=== PATIENT | female | born 1955 | race Caucasian/White ===

== ENCOUNTER 2018-10-17 01:13 | Emergency (ER) | payer MEDICAID ==
[~2018-10-17] VITALS: Ht 152.4 cm; Wt 99.8 kg
[2018-10-17 01:15] VITALS: BP_SYST 152
--- NOTE | 2018-10-17 01:20 | NUR ---
Patient to ER bed 2 to gown for evaluation. Side rails up.
--- NOTE | 2018-10-17 01:25 | NUR ---
Pt BIB family to ED C/O L sided numbness, SOB, and headache for 3 days. Pt self medicated with oxycontin without relief. Pt states "feeling anxious." Pt med hx: hypertension and fibromyalgia. No other complaints and or injuries noted. VSS, no s/s of acute distress. Resting on gurney with rails up
--- NOTE | 2018-10-17 01:29 | NUR ---
Dr. Rodriguez bedside for Pt eval
[2018-10-17] MEDS ORDERED: GLUC-226 PO (01:30)
[2018-10-17] MEDS ORDERED: OXYC-132 PO (01:30)
[2018-10-17] MEDS ORDERED: KETOROLAC TROMETHAMINE 60 MG/2 ML VIAL IM ONE (01:45)
[2018-10-17 02:09] VITALS: BP_SYST 152
--- NOTE | 2018-10-17 02:09 | NUR ---
Patient given written and verbal discharge instructions and verbalizes understanding. ER MD discussed with patient the results and treatment provided. Patient in stable condition. ID arm band removed. Rx of Motrin and Atarax given. Patient educated on pain management and to follow up with PMD. Pain Scale 1/10. Opportunity for questions provided and answered. Medication side effect fact sheet provided.
== END 2018-10-17 02:09 | disposition home or self-care (01) ==
LOC: SED 01:13
DX: R21 Rash and other nonspecific skin eruption (principal); R20.2 Paresthesia of skin; M79.7 Fibromyalgia; I10 Essential (primary) hypertension; Z90.49 Acquired absence of other specified parts of digestive tract; Z79.899 Other long term (current) drug therapy
CPT/HCPCS: 81002; 96372; 99283; J1885

== ENCOUNTER 2018-10-18 16:07 | Emergency (ER) | payer MEDICAID ==
[~2018-10-18] VITALS: Ht 152.4 cm; Wt 99.8 kg
[~2018-10-18 16:07] MED LIST: GLUC-226 PO; OXYC-132 PO
[2018-10-18 16:19] VITALS: BP_SYST 136
[2018-10-18] MEDS ORDERED: LORazepam 1 MG TABLET PO ONE (16:45)
[2018-10-18 16:53] LABS: BASOPHILS % (AUTO) 0.4 % (0.0-2.0); EOSINOPHILS # (AUTO) 0.1 K/uL (0.0-0.4); HEMATOCRIT 38.8 % (36-48); HEMOGLOBIN 13.1 g/dL (12.0-16.0); MEAN CORPUSCULAR HEMOGLOBIN 27 pg (27-31); MEAN CORPUSCULAR HGB CONC 34 % (32-36); MEAN CORPUSCULAR VOLUME 81 fL (79.0-98.0); MONOCYTES # (AUTO) 0.3 K/uL (0.0-1.0); MONOCYTES % (AUTO) 9.4 % (1.7-9.3); NEUTROPHILS # (AUTO) 2.2 K/uL (1.8-7.7); NEUTROPHILS % (AUTO) 60.2 % (40.0-70.0); PLATELET COUNT (AUTO) 99 K/uL (130-430); RED BLOOD CELL COUNT(AUTO) 4.82 MIL/uL (4.2-6.2); RED CELL DISTRIBUTION WIDTH 13.3 % (9.0-15.0); WHITE BLOOD COUNT (AUTO) 3.6 K/uL (4.8-10.8)
[2018-10-18 17:04] LABS: CALCIUM 9.5 mg/dL (8.4-11.0); CREATININE 0.77 mg/dL (0.55-1.30); POTASSIUM 3.7 mmol/L (3.5-5.1)
[2018-10-18 17:05] LABS: PROTHROMBIN TIME 10.3 SECS (9.5-12.5)
[2018-10-18 17:09] LABS: ALBUMIN 3.5 g/dL (3.4-4.8); TOTAL BILIRUBIN 0.8 mg/dL (0.0-1.0)
[2018-10-18 17:43] VITALS: BP_SYST 129
== END 2018-10-18 17:43 | disposition home or self-care (01) ==
LOC: SED 16:07
DX: G44.201 Tension-type headache, unspecified, intractable (principal); F41.9 Anxiety disorder, unspecified; F32.9 Major depressive disorder, single episode, unspecified; I10 Essential (primary) hypertension; Z90.49 Acquired absence of other specified parts of digestive tract; Z79.899 Other long term (current) drug therapy
CPT/HCPCS: 36415; 70450-TC; 71045; 80053; 85025; 85610-TC; 93005; 99284

== ENCOUNTER 2019-03-16 18:32 | Inpatient (IN) | payer MEDICAID ==
[~2019-03-16] VITALS: Ht 152.4 cm; Wt 94.8 kg
[2019-03-16 18:41] VITALS: BP_SYST 118
[2019-03-16] MEDS ORDERED: NS 500 ML IV ONE (20:00)
[2019-03-16] MEDS ORDERED: ONDANSETRON HCL 4 MG/2 ML VIAL IVP ONE (20:00)
[2019-03-16] MEDS ORDERED: MORPHINE 2 MG/ML INJ. SYRINGE IVP ONE (20:00)
[2019-03-16 20:29] LABS: BASOPHILS % (AUTO) 0.2 % (0.0-2.0); EOSINOPHILS # (AUTO) 0.1 K/uL (0.0-0.4); EOSINOPHILS % (AUTO) 1.9 % (0.0-4.0); HEMATOCRIT 38.2 % (36-48); LYMPHOCYTES # (AUTO) 1.3 K/uL (1.0-5.5); LYMPHOCYTES % (AUTO) 35.3 % (20.5-51.5); MEAN CORPUSCULAR HEMOGLOBIN 28 pg (27-31); MEAN CORPUSCULAR HGB CONC 34 % (32-36); MEAN CORPUSCULAR VOLUME 81 fL (79.0-98.0); MONOCYTES # (AUTO) 0.3 K/uL (0.0-1.0); NEUTROPHILS # (AUTO) 2.1 K/uL (1.8-7.7); NEUTROPHILS % (AUTO) 55.6 % (40.0-70.0); RED BLOOD CELL COUNT(AUTO) 4.69 MIL/uL (4.2-6.2); RED CELL DISTRIBUTION WIDTH 13.4 % (9.0-15.0); WHITE BLOOD COUNT (AUTO) 3.7 K/uL (4.8-10.8)
[2019-03-16 20:35] LABS: CALCIUM 9.6 mg/dL (8.4-11.0); CREATININE 0.87 mg/dL (0.55-1.30)
[2019-03-16 20:37] LABS: PROTHROMBIN TIME 10.4 SECS (9.5-12.5)
[2019-03-16 20:40] LABS: ALBUMIN 4.1 g/dL (3.4-4.8); TOTAL BILIRUBIN 0.4 mg/dL (0.0-1.0)
[2019-03-16 20:47] LABS: PLATELET COUNT (AUTO) 91 K/uL (130-430)
[2019-03-16 21:00] LABS: BILIRUBIN,URINE NEGATIVE (NEGATIVE); CLARITY/URINE CLEAR (CLEAR); COLOR,URINE YELLOW (YELLOW); GLUCOSE,URINE NEGATIVE (NEGATIVE); KETONES,URINE NEGATIVE (NEGATIVE); LEUKOCYTE ESTERASE ,URINE NEGATIVE (NEGATIVE); NITRITE, URINE NEGATIVE (NEGATIVE); PH,URINE 6.5 (5.0-8.0); PROTEIN URINE NEGATIVE (NEGATIVE); UROBILINOGEN,URINE 0.2 (0.2-1.0)
[2019-03-16 21:02] LABS: BLOOD, URINE TRACE (NEGATIVE)
[2019-03-16 21:28] LABS: WBC,URINE 0-3 /HPF (0-3)
[2019-03-16 21:29] LABS: BACTERIA,URINE MODERATE /HPF (None Seen)
[2019-03-16] MEDS ORDERED: LISI40TA4 PO (22:58)
[2019-03-16] MEDS ORDERED: DOCU-144 PO (22:58)
[2019-03-16] MEDS ORDERED: DULO60CA41 PO (22:58)
[2019-03-16] MEDS ORDERED: ARIP5TAB10 PO (22:58)
[2019-03-16] MEDS ORDERED: LORA2TAB PO (22:58)
[2019-03-16] MEDS ORDERED: DOCUSATE SODIUM 100 MG CAPSULE PO PRN (23:15)
[2019-03-16] MEDS ORDERED: ACETAMINOPHEN PO PRN (23:15)
[2019-03-16] MEDS ORDERED: OXYCODONE HCL PO PRN (23:15)
[2019-03-16] MEDS ORDERED: [UNRECOGNIZED DRUG - OTHER] PO PRN (23:15)
[2019-03-17] VITALS (9 sets, daily range): BP systolic 109–127
[2019-03-17] MEDS ORDERED: TEMAZEPAM 15 MG CAPSULE PO PRN (00:15)
[2019-03-17] MEDS ORDERED: FLU VACC QS2019-20 36MOS UP/PF 60 MCG/0.5 ML SYRINGE I.M. PRN (00:30)
[2019-03-17] MEDS: HYDROcodone/ACETAMIN 5-325 MG TAB (NORCO/ VICODIN) PO PRN ×2 (02:04→19:42)
[2019-03-17 04:39] LABS: BASOPHILS % (AUTO) 0.3 % (0.0-2.0); EOSINOPHILS # (AUTO) 0.1 K/uL (0.0-0.4); EOSINOPHILS % (AUTO) 2.4 % (0.0-4.0); HEMATOCRIT 37.8 % (36-48); HEMOGLOBIN 12.6 g/dL (12.0-16.0); LYMPHOCYTES # (AUTO) 1.2 K/uL (1.0-5.5); LYMPHOCYTES % (AUTO) 33.3 % (20.5-51.5); MEAN CORPUSCULAR HEMOGLOBIN 27 pg (27-31); MEAN CORPUSCULAR HGB CONC 33 % (32-36); MEAN CORPUSCULAR VOLUME 82 fL (79.0-98.0); MONOCYTES # (AUTO) 0.2 K/uL (0.0-1.0); MONOCYTES % (AUTO) 5.8 % (1.7-9.3); NEUTROPHILS # (AUTO) 2.2 K/uL (1.8-7.7); NEUTROPHILS % (AUTO) 58.2 % (40.0-70.0); PLATELET COUNT (AUTO) 79 K/uL (130-430); RED BLOOD CELL COUNT(AUTO) 4.61 MIL/uL (4.2-6.2); RED CELL DISTRIBUTION WIDTH 13.4 % (9.0-15.0); WHITE BLOOD COUNT (AUTO) 3.7 K/uL (4.8-10.8)
[2019-03-17 05:06] LABS: ALBUMIN 3.5 g/dL (3.4-4.8); CALCIUM 8.8 mg/dL (8.4-11.0); CREATININE 0.83 mg/dL (0.55-1.30); FREE T4 (FREE THYROXINE) 0.9 ng/dl (0.8-1.5); POTASSIUM 4.1 mmol/L (3.5-5.1); THYROID STIMULATING HORMONE 2.38 uIu/mL (0.36-3.74); TOTAL BILIRUBIN 0.5 mg/dL (0.0-1.0)
[2019-03-17] MEDS: MORPHINE 2 MG/ML INJ. SYRINGE IVP PRN ×3 (06:12→22:24)
[2019-03-17] MEDS ORDERED: LORazepam 1 MG TABLET PO SCH (09:00)
[2019-03-17] MEDS: DULoxetine HCL 30 MG CAPSULE.DR (CYMBALTA) PO SCH (09:40)
[2019-03-17] MEDS: LISINOPRIL 20 MG TABLET PO SCH (09:41)
[2019-03-17] MEDS: METOCLOPRAMIDE HCL 10 MG/2 ML VIAL IVP PRN (11:00)
[2019-03-17] MEDS: LORazepam 1 MG TABLET PO SCH (21:26)
[2019-03-17] MEDS: ARIPiprazole 5 MG TAB PO SCH (21:28)
[2019-03-18] VITALS: BP_SYST 125
[2019-03-18] MEDS: MORPHINE 2 MG/ML INJ. SYRINGE IVP PRN ×3 (05:58→17:54)
[2019-03-18 06:15] LABS: CALCIUM 9.2 mg/dL (8.4-11.0); CREATININE 0.8 mg/dL (0.55-1.30); POTASSIUM 4.2 mmol/L (3.5-5.1)
[2019-03-18 08:00] VITALS: BP_SYST 113
[2019-03-18 08:06] LABS: FOLATE (FOLIC ACID) 16.5 ng/mL (>3.0)
[2019-03-18 08:37] LABS: BASOPHILS % (AUTO) 0.3 % (0.0-2.0); EOSINOPHILS # (AUTO) 0.1 K/uL (0.0-0.4); EOSINOPHILS % (AUTO) 1.6 % (0.0-4.0); HEMATOCRIT 39.8 % (36-48); HEMOGLOBIN 13.3 g/dL (12.0-16.0); LYMPHOCYTES # (AUTO) 1.1 K/uL (1.0-5.5); LYMPHOCYTES % (AUTO) 28.7 % (20.5-51.5); MEAN CORPUSCULAR HEMOGLOBIN 27 pg (27-31); MEAN CORPUSCULAR HGB CONC 33 % (32-36); MEAN CORPUSCULAR VOLUME 82 fL (79.0-98.0); MONOCYTES # (AUTO) 0.2 K/uL (0.0-1.0); MONOCYTES % (AUTO) 4.4 % (1.7-9.3); NEUTROPHILS # (AUTO) 2.5 K/uL (1.8-7.7); PLATELET COUNT (AUTO) 90 K/uL (130-430); RED BLOOD CELL COUNT(AUTO) 4.86 MIL/uL (4.2-6.2); RED CELL DISTRIBUTION WIDTH 13.6 % (9.0-15.0); WHITE BLOOD COUNT (AUTO) 3.9 K/uL (4.8-10.8)
[2019-03-18] MEDS: DULoxetine HCL 30 MG CAPSULE.DR (CYMBALTA) PO SCH (08:43)
[2019-03-18] MEDS: ACETAMINOPHEN 325 MG TABLET PO PRN ×2 (08:44→18:21)
[2019-03-18] MEDS: LISINOPRIL 20 MG TABLET PO SCH (08:44)
[2019-03-18 12:00] VITALS: BP_SYST 135
[2019-03-18 16:49] VITALS: BP_SYST 116
[2019-03-18] MEDS: METOCLOPRAMIDE HCL 10 MG/2 ML VIAL IVP PRN (18:22)
[2019-03-18 20:00] VITALS: BP_SYST 140
[2019-03-18] MEDS: ARIPiprazole 5 MG TAB PO SCH (21:00)
[2019-03-18] MEDS: LORazepam 1 MG TABLET PO SCH (21:38)
[2019-03-19 00:17] VITALS: BP_SYST 122
[2019-03-19] MEDS: MORPHINE 2 MG/ML INJ. SYRINGE IVP PRN ×2 (03:14→08:46)
[2019-03-19 08:00] VITALS: BP_SYST 107
[2019-03-19] MEDS: LISINOPRIL 20 MG TABLET PO SCH (08:46)
[2019-03-19] MEDS: DULoxetine HCL 30 MG CAPSULE.DR (CYMBALTA) PO SCH (08:46)
[2019-03-19] MEDS: METOCLOPRAMIDE HCL 10 MG/2 ML VIAL IVP PRN (08:47)
[2019-03-19] MEDS ORDERED: LORazepam 1 MG TABLET PO ONE (11:00)
[2019-03-19] MEDS: HYDROcodone/ACETAMIN 5-325 MG TAB (NORCO/ VICODIN) PO PRN (11:34)
[2019-03-19 12:00] VITALS: BP_SYST 110
[2019-03-19] MEDS ORDERED: LORA-259 PO (12:15)
[2019-03-19 12:30] VITALS: BP_SYST 110
[2019-03-19 12:42] LABS: HEPATITIS C VIRUS AB >11.0 s/co ratio (0.0-0.9)
== END 2019-03-19 13:05 | disposition home or self-care (01) | DRG 249 ==
LOC: SED 18:32 → STU 22:48
PROVIDERS: ADMIT Internal Medicine; ATTEND Internal Medicine
DX: A08.4 Viral intestinal infection, unspecified (principal); D69.6 Thrombocytopenia, unspecified; R65.10 Systemic inflammatory response syndrome (SIRS) of non-infectious origin without acute organ dysfunction; E66.01 Morbid (severe) obesity due to excess calories; Z68.41 Body mass index [BMI] 40.0-44.9, adult; K70.30 Alcoholic cirrhosis of liver without ascites; R07.89 Other chest pain; F32.9 Major depressive disorder, single episode, unspecified; F41.9 Anxiety disorder, unspecified; M19.90 Unspecified osteoarthritis, unspecified site; M47.9 Spondylosis, unspecified; F60.1 Schizoid personality disorder; Z90.49 Acquired absence of other specified parts of digestive tract; Z98.891 History of uterine scar from previous surgery; M54.10 Radiculopathy, site unspecified; G89.4 Chronic pain syndrome; I10 Essential (primary) hypertension
CPT/HCPCS: 36415; 71045; 72125-TC; 72131; 76700-TC; 80048; 80053; 80061; 81000-TC; 82607; 82746; 83735-TC; 83880; 84439; 84443-TC; 84484; 85025; 85379; 85610-TC; 85730-TC; 86803; 87045-TC; 87046; 87086; 89055; 93005; 93306; 94760; 96361; 96374; 96375; 99285; G0378; J2270; J2405; J2765; Q2037

== ENCOUNTER 2020-05-05 19:10 | Emergency (ER) | payer MEDICARE, MEDICAID ==
[~2020-05-05] VITALS: Ht 154.9 cm; Wt 104.3 kg
[~2020-05-05 19:10] MED LIST changes: +ARIP5TAB10 PO; +DOCU-144 PO; +DULO60CA41 PO; -GLUC-226 PO; +LISI40TA4 PO; +LORA-259 PO; +LORA2TAB PO
[2020-05-05 19:32] VITALS: BP_SYST 142
[2020-05-05] MEDS ORDERED: ARIP10TA9 PO (19:42)
[2020-05-05] MEDS ORDERED: PERC10 PO (19:42)
[2020-05-05] MEDS ORDERED: CYCL-10 PO (19:42)
[2020-05-05] MEDS: KETOROLAC TROMETHAMINE 30 MG VIAL IM ONE (22:00)
[2020-05-05] MEDS: ONDANSETRON 4 MG ODT TAB PO ONE (23:48)
[2020-05-05] MEDS: DEXAMETHASONE SOD PHOSPHATE 10 MG/ML VIAL IM ONE (23:49)
[2020-05-05] MEDS: DIPHENHYDRAMINE INJ 50 MG/ML VIAL IM ONE (23:49)
[2020-05-05] MEDS: MORPHINE SULFATE 10 MG/ML VIAL IM ONE (23:50)
[2020-05-06 00:11] VITALS: BP_SYST 130
== END 2020-05-06 00:10 | disposition home or self-care (01) ==
LOC: SED 19:10
DX: R10.9 Unspecified abdominal pain (principal); I10 Essential (primary) hypertension; F41.9 Anxiety disorder, unspecified; Z79.899 Other long term (current) drug therapy
CPT/HCPCS: 72131; 76376; 96372; 99284; J1100; J1200; J1885; J2270; Q0162

== ENCOUNTER 2020-06-30 11:47 | Emergency (ER) | payer MEDICARE, MEDICAID ==
[~2020-06-30] VITALS: Ht 170.2 cm; Wt 90.7 kg
[2020-06-30 11:47] VITALS: BP_SYST 143
[~2020-06-30 11:47] MED LIST changes: +ARIP10TA9 PO; -ARIP5TAB10 PO; +CYCL-10 PO; -DOCU-144 PO; -LORA-259 PO; -LORA2TAB PO; -OXYC-132 PO; +PERC10 PO
[2020-06-30] MEDS ORDERED: KETOROLAC TROMETHAMINE 60 MG/2 ML VIAL IM ONE (12:00)
[2020-06-30] MEDS ORDERED: ONDANSETRON 4 MG ODT TAB PO ONE (12:00)
[2020-06-30 12:29] LABS: BASOPHILS % (AUTO) 0.4 % (0.0-2.0); EOSINOPHILS # (AUTO) 0.1 K/uL (0.0-0.4); EOSINOPHILS % (AUTO) 2.5 % (0.0-4.0); HEMATOCRIT 40.4 % (36-48); HEMOGLOBIN 13.3 g/dL (12.0-16.0); LYMPHOCYTES # (AUTO) 1.1 K/uL (1.0-5.5); LYMPHOCYTES % (AUTO) 22.7 % (20.5-51.5); MEAN CORPUSCULAR HEMOGLOBIN 27 pg (27-31); MEAN CORPUSCULAR HGB CONC 33 % (32-36); MEAN CORPUSCULAR VOLUME 82 fL (79.0-98.0); MONOCYTES # (AUTO) 0.2 K/uL (0.0-1.0); MONOCYTES % (AUTO) 4.7 % (1.7-9.3); NEUTROPHILS # (AUTO) 3.4 K/uL (1.8-7.7); NEUTROPHILS % (AUTO) 69.7 % (40.0-70.0); PLATELET COUNT (AUTO) 116 K/uL (130-430); RED BLOOD CELL COUNT(AUTO) 4.92 MIL/uL (4.2-6.2); RED CELL DISTRIBUTION WIDTH 13.1 % (9.0-15.0); WHITE BLOOD COUNT (AUTO) 4.9 K/uL (4.8-10.8)
[2020-06-30 13:10] LABS: CALCIUM 9.3 mg/dL (8.4-11.0); CREATININE 0.9 mg/dL (0.55-1.30); POTASSIUM 3.5 mmol/L (3.5-5.1)
[2020-06-30 13:15] LABS: ALBUMIN 3.8 g/dL (3.4-4.8); TOTAL BILIRUBIN 0.6 mg/dL (0.0-1.0)
[2020-06-30 14:10] VITALS: BP_SYST 123
[2020-06-30 15:30] LABS: BILIRUBIN,URINE NEGATIVE (NEGATIVE); BLOOD, URINE NEGATIVE (NEGATIVE); COLOR,URINE YELLOW (YELLOW); GLUCOSE,URINE NEGATIVE (NEGATIVE); KETONES,URINE NEGATIVE (NEGATIVE); LEUKOCYTE ESTERASE ,URINE NEGATIVE (NEGATIVE); NITRITE, URINE NEGATIVE (NEGATIVE); PROTEIN URINE NEGATIVE (NEGATIVE); UROBILINOGEN,URINE 0.2 (0.2-1.0)
[2020-06-30 15:43] LABS: CLARITY/URINE CLEAR (CLEAR)
== END 2020-06-30 14:10 | disposition home or self-care (01) ==
LOC: SED 11:47
DX: R10.13 Epigastric pain (principal); I10 Essential (primary) hypertension; Z79.899 Other long term (current) drug therapy
CPT/HCPCS: 36415; 74176; 76376; 80053; 81003; 82150; 83605; 83690; 84484; 85025; 96372; 99284; J1885; Q0162

== ENCOUNTER 2020-07-13 17:13 | Emergency (ER) | payer MEDICARE, MEDICAID ==
[~2020-07-13] VITALS: Ht 152.4 cm; Wt 90.7 kg
[2020-07-13 17:28] VITALS: BP_SYST 134
[2020-07-13] MEDS ORDERED: LISI40TA4 PO (17:48)
[2020-07-13] MEDS ORDERED: FURO-150 PO (17:48)
[2020-07-13] MEDS ORDERED: DULO60CA41 PO (17:48)
[2020-07-13] MEDS ORDERED: TOP25 PO (17:48)
[2020-07-13] MEDS ORDERED: OXYIR5 PO (17:48)
[2020-07-13] MEDS ORDERED: NEU300 PO (17:48)
[2020-07-13 18:00] LABS: BARBITURATE, URINE NEGATIVE (NEG <=200); BENZODIAZEPINE, URINE NEGATIVE (NEG <=150); CANNABINOID, URINE NEGATIVE (NEG <=50); COCAINE, URINE NEGATIVE (NEG <=150); METHAMPHETAMINES SCREEN,URINE NEGATIVE (NEG <=500); OPIATE, URINE NEGATIVE (NEG <=100); PHENCYCLIDINE SCREEN,URINE NEGATIVE (NEG <=25); UR TRICYCLIC ANTIDEPRESSANTS POSITIVE (NEG <=300); URINE AMPHETAMINE NEGATIVE (NEG <=500); URINE METHADONE NEGATIVE (NEG <=200); URINE OXYCODONE SCREEN POSITIVE (NEG <=100); URINE PROPOXYPHENE SCREEN NEGATIVE (NEG <=300)
[2020-07-13] MEDS ORDERED: KETOROLAC TROMETHAMINE 30 MG VIAL IM ONE (18:00)
[2020-07-13 18:15] LABS: BASOPHILS % (AUTO) 0.3 % (0.0-2.0); EOSINOPHILS # (AUTO) 0.2 K/uL (0.0-0.4); EOSINOPHILS % (AUTO) 4.3 % (0.0-4.0); HEMATOCRIT 37.6 % (36-48); HEMOGLOBIN 12.5 g/dL (12.0-16.0); LYMPHOCYTES # (AUTO) 1.3 K/uL (1.0-5.5); LYMPHOCYTES % (AUTO) 25.5 % (20.5-51.5); MEAN CORPUSCULAR HEMOGLOBIN 27 pg (27-31); MEAN CORPUSCULAR HGB CONC 33 % (32-36); MEAN CORPUSCULAR VOLUME 81 fL (79.0-98.0); MONOCYTES # (AUTO) 0.3 K/uL (0.0-1.0); MONOCYTES % (AUTO) 6.3 % (1.7-9.3); NEUTROPHILS # (AUTO) 3.1 K/uL (1.8-7.7); NEUTROPHILS % (AUTO) 63.6 % (40.0-70.0); PLATELET COUNT (AUTO) 122 K/uL (130-430); RED BLOOD CELL COUNT(AUTO) 4.61 MIL/uL (4.2-6.2); RED CELL DISTRIBUTION WIDTH 12.9 % (9.0-15.0); WHITE BLOOD COUNT (AUTO) 4.9 K/uL (4.8-10.8)
[2020-07-13 18:21] LABS: ANION GAP 7 (5-15); CALCIUM 8.9 mg/dL (8.4-11.0); CHLORIDE 102 mmol/L (98-107); CREATININE 0.88 mg/dL (0.55-1.30); GLUCOSE 106 mg/dL (70-99); POTASSIUM 3.6 mmol/L (3.5-5.1); SODIUM SERUM 138 mmol/L (136-145); UREA NITROGEN, BLOOD 11 mg/dL (8-21)
[2020-07-13 18:22] LABS: GFR AFRICAN AMERICAN 83 mL/min (>90)
[2020-07-13 18:27] LABS: ALANINE AMINOTRANSFERASE 18 U/L (12-78); ALBUMIN 3.6 g/dL (3.4-4.8); ASPARTATE AMINOTRANSFERASE 16 U/L (10-37); TOTAL BILIRUBIN 0.5 mg/dL (0.0-1.0)
[2020-07-13 18:28] LABS: ALCOHOL, BLOOD < 3 mg/dL (<10)
[2020-07-13 18:29] LABS: ACETAMINOPHEN < 1 ug/mL (1-30)
[2020-07-13 20:10] VITALS: BP_SYST 128
== END 2020-07-13 20:11 | disposition home or self-care (01) ==
LOC: SED 17:13
DX: R41.0 Disorientation, unspecified (principal); I10 Essential (primary) hypertension; F41.9 Anxiety disorder, unspecified; Z79.899 Other long term (current) drug therapy
CPT/HCPCS: 36415; 80053; 80307; 82550; 85025; 96372; 99283; G0480; G0481; G0482

== ENCOUNTER 2021-01-21 11:57 | Emergency (ER) | payer MEDICARE, MEDICAID ==
[~2021-01-21] VITALS: Ht 152.4 cm; Wt 99.8 kg
[~2021-01-21 11:57] MED LIST changes: +FURO-150 PO; +LISI40TA13 PO; -LISI40TA4 PO; +NEU300 PO; +OXYIR5 PO; -PERC10 PO; +TOP25 PO
[2021-01-21 12:23] VITALS: BP_SYST 132
--- NOTE | 2021-01-21 18:30 | NUR ---
Patient to ER bed 07 to gown for evaluation. Side rails up.
--- NOTE | 2021-01-21 18:32 | NUR ---
Pt brought by self, A&Ox4, pt presents to ER with bilateral hip/leg pain and L shoulder pain, pt states she hsa Hx of fibromyalgia, arthritis, skin pink and warm , cap refill <3, VSS.
--- NOTE | 2021-01-21 19:07 | NUR ---
Received endorsement from day shift, AAOX4, breathing spontaneously at room air, not in distress noted. Vital signs stable
--- NOTE | 2021-01-21 19:17 | NUR ---
Seen and examined by Dr. Gaona, ER Attending
[2021-01-21] MEDS ORDERED: IBUP-1969 PO (19:26)
[2021-01-21] MEDS: DIPHENHYDRAMINE INJ 50 MG/ML VIAL IM ONE (19:45)
--- NOTE | 2021-01-21 19:45 | NUR ---
Medications given as ordered, health teaching provided and verbalized understanding
[2021-01-21] MEDS: MORPHINE SULFATE 10 MG/ML VIAL IM ONE (19:46)
[2021-01-21 19:49] VITALS: BP_SYST 149
--- NOTE | 2021-01-21 19:49 | NUR ---
Patient given written and verbal discharge instructions and verbalizes understanding. ER MD discussed with patient the results and treatment provided. Patient in stable condition. ID arm band removed. Rx of IBUPROPEN given. Patient educated on pain management and to follow up with PMD. Pain Scale 3/10. Opportunity for questions provided and answered. Medication side effect fact sheet provided.
--- NOTE | 2021-01-21 20:36 | NUR ---
[facility] [phone] [facility]
== END 2021-01-21 19:49 | disposition home or self-care (01) ==
LOC: SED 11:57
DX: M51.37 Other intervertebral disc degeneration, lumbosacral region (principal); M54.5 Low back pain; I10 Essential (primary) hypertension; Z79.899 Other long term (current) drug therapy
CPT/HCPCS: 72131; 76376; 96372; 99284; J1200; J2270

== ENCOUNTER 2021-07-21 04:18 | Inpatient (IN) | payer MEDICAID, MEDICARE, SELFPAY ==
[~2021-07-21] VITALS: Ht 152.4 cm; Wt 99.8 kg
[2021-07-21] VITALS (13 sets, daily range): BP systolic 94–162
[~2021-07-21 04:18] MED LIST changes: -CYCL-10 PO; +CYCL10TA24 PO; -DULO60CA41 PO; +DULO60CA42 PO; +IBUP-1969 PO
[2021-07-21] MEDS ORDERED: NACL 0.9% 1,000 ML IV ONE (05:15)
[2021-07-21] MEDS ORDERED: DEXAMETHASONE SOD PHOSPHATE 4 MG/ML VIAL IVP ONE ×3 (05:45→21:00)
[2021-07-21] MEDS ORDERED: AZITHROMYCIN 500 MG in NS 250 ML IV ONE (05:45)
[2021-07-21] MEDS: cefTRIAXone 1 GM IVPB PREMIX 50 ML IV ONE ×2 (05:49→06:53)
[2021-07-21] MEDS ORDERED: FURO-149 PO (06:46)
[2021-07-21] MEDS ORDERED: IBUP-1970 PO (06:48)
[2021-07-21] MEDS ORDERED: PERC10 PO (06:51)
[2021-07-21 07:14] LABS: BASOPHILS % (AUTO) 0.2 % (0.0-2.0); EOSINOPHILS % (AUTO) 0.2 % (0.0-4.0); HEMATOCRIT 37.5 % (36-48); HEMOGLOBIN 12.6 g/dL (12.0-16.0); LYMPHOCYTES # (AUTO) 0.3 K/uL (1.0-5.5); LYMPHOCYTES % (AUTO) 11.7 % (20.5-51.5); MEAN CORPUSCULAR HEMOGLOBIN 26 pg (27-31); MEAN CORPUSCULAR HGB CONC 34 % (32-36); MEAN CORPUSCULAR VOLUME 78 fL (79.0-98.0); MONOCYTES # (AUTO) 0.1 K/uL (0.0-1.0); NEUTROPHILS # (AUTO) 2.1 K/uL (1.8-7.7); NEUTROPHILS % (AUTO) 82.9 % (40.0-70.0); PLATELET COUNT (AUTO) 77 K/uL (130-430); RED BLOOD CELL COUNT(AUTO) 4.82 MIL/uL (4.2-6.2); RED CELL DISTRIBUTION WIDTH 14.1 % (9.0-15.0); WHITE BLOOD COUNT (AUTO) 2.6 K/uL (4.8-10.8)
[2021-07-21] MEDS ORDERED: AZITHROMYCIN 500 MG/VIAL (ZITHROMAX) IV ONE (07:23)
[2021-07-21 07:29] LABS: INR 0.9 (0.8-1.2); PROTHROMBIN TIME 9.4 SECS (9.5-12.5)
[2021-07-21 07:37] LABS: CALCIUM 7.8 mg/dL (8.4-11.0); CREATININE 0.7 mg/dL (0.55-1.30); POTASSIUM 5.4 mmol/L (3.5-5.1)
[2021-07-21 07:42] LABS: ALBUMIN 2.5 g/dL (3.4-4.8); TOTAL BILIRUBIN 0.5 mg/dL (0.0-1.0)
[2021-07-21 07:57] LABS: C-REACTIVE PROTEIN QUANT 9.6 mg/dL (0-0.5)
[2021-07-21 08:04] LABS: BILIRUBIN,URINE NEGATIVE (NEGATIVE); BLOOD, URINE NEGATIVE (NEGATIVE); CLARITY/URINE CLEAR (CLEAR); COLOR,URINE YELLOW (YELLOW); GLUCOSE,URINE NEGATIVE (NEGATIVE); KETONES,URINE NEGATIVE (NEGATIVE); LEUKOCYTE ESTERASE ,URINE NEGATIVE (NEGATIVE); NITRITE, URINE NEGATIVE (NEGATIVE); PROTEIN URINE NEGATIVE (NEGATIVE)
[2021-07-21] MEDS ORDERED: HYDROcodone/ACETAMIN 10-325 MG TAB PO ONE (10:00)
[2021-07-21] MEDS ORDERED: CHOLECALCIFEROL (VITAMIN D3) 2,000 UNIT TABLET PO ONE (11:45)
[2021-07-21] MEDS: AZITHROMYCIN 500 MG in NS 250 ML IV SCH (12:12)
[2021-07-21] MEDS ORDERED: ONDANSETRON HCL 4 MG/2 ML VIAL IVP PRN (14:30)
[2021-07-21] MEDS ORDERED: OXYCODONE/ACETAMINOPHEN *10*mg/325 mg TABLET PO PRN (14:30)
[2021-07-21] MEDS ORDERED: IPRATROPIUM BROM 0.5 MG/2.5 ML VIAL.NEB (ATROVENT) INH SCH (15:00)
[2021-07-21] MEDS ORDERED: ALBUTEROL SULFATE 0.083% 2.5 MG/3 ML VIAL.NEB INH SCH (15:00)
[2021-07-21] MEDS: BARICITINIB -Non-Formulary 2 MG TABLET PO SCH (15:53)
[2021-07-21] MEDS: CYCLOBENZAPRINE HCL 10 MG TABLET (FLEXERIL) PO SCH ×2 (16:04→22:27)
[2021-07-21] MEDS: ALBUTEROL MDI INHALATION 8 GM INH INH SCH ×3 (16:40→23:05)
[2021-07-21] MEDS ORDERED: SODIUM POLYSTYRENE SULFONATE 15 GM/60 ML UDBTL PO ONE (17:00)
[2021-07-21] MEDS ORDERED: OXYCODONE/ACETAMINOPHEN *10*mg/325 mg TABLET PO ONE (17:00)
[2021-07-21] MEDS: NACL 0.9% 1,000 ML IV SCH (17:59)
[2021-07-21] MEDS: ARIPiprazole 5 MG TAB PO SCH (22:12)
[2021-07-21] MEDS: ASCORBIC ACID 500 MG TABLET PO SCH (22:27)
[2021-07-21] MEDS: GABAPENTIN 300 MG CAPSULE PO SCH (22:27)
[2021-07-21] MEDS: OSELTAMIVIR PHOSPHATE 75 MG CAPSULE PO SCH (22:28)
[2021-07-22] VITALS (24 sets, daily range): BP systolic 93–131
[2021-07-22] MEDS: OXYCODONE/ACETAMINOPHEN *10*mg/325 mg TABLET PO PRN ×2 (00:42→11:53)
[2021-07-22] MEDS: ALBUTEROL MDI INHALATION 8 GM INH INH SCH ×5 (04:08→23:35)
[2021-07-22] MEDS: NACL 0.9% 1,000 ML IV SCH ×3 (04:39→23:03)
[2021-07-22 06:52] LABS: BASOPHILS % (AUTO) 0.1 % (0.0-2.0); HEMATOCRIT 37.5 % (36-48); HEMOGLOBIN 12.7 g/dL (12.0-16.0); LYMPHOCYTES # (AUTO) 0.4 K/uL (1.0-5.5); LYMPHOCYTES % (AUTO) 11.8 % (20.5-51.5); MEAN CORPUSCULAR HEMOGLOBIN 26 pg (27-31); MEAN CORPUSCULAR HGB CONC 34 % (32-36); MEAN CORPUSCULAR VOLUME 78 fL (79.0-98.0); MONOCYTES # (AUTO) 0.2 K/uL (0.0-1.0); MONOCYTES % (AUTO) 4.6 % (1.7-9.3); NEUTROPHILS % (AUTO) 83.5 % (40.0-70.0); PLATELET COUNT (AUTO) 125 K/uL (130-430); RED BLOOD CELL COUNT(AUTO) 4.82 MIL/uL (4.2-6.2); RED CELL DISTRIBUTION WIDTH 14.1 % (9.0-15.0)
[2021-07-22 07:59] LABS: ALBUMIN 2.6 g/dL (3.4-4.8); CALCIUM 8.3 mg/dL (8.4-11.0); CREATININE 0.64 mg/dL (0.55-1.30); PHOSPHORUS 3.4 mg/dL (2.7-4.5); POTASSIUM 3.9 mmol/L (3.5-5.1); TOTAL BILIRUBIN 0.2 mg/dL (0.0-1.0)
[2021-07-22 08:03] LABS: WHITE BLOOD COUNT (AUTO) 3.6 K/uL (4.8-10.8)
[2021-07-22 08:33] LABS: C-REACTIVE PROTEIN QUANT 7.1 mg/dL (0-0.5)
[2021-07-22] MEDS ORDERED: cefTRIAXone 1 GM in D5W 50 ML IV SCH (09:00)
[2021-07-22] MEDS: DULoxetine HCL 30 MG CAPSULE.DR (CYMBALTA) PO SCH (09:15)
[2021-07-22] MEDS: TOPIRAMATE 25 MG TABLET(TOPAMAX) PO SCH (09:19)
[2021-07-22] MEDS: OSELTAMIVIR PHOSPHATE 75 MG CAPSULE PO SCH ×2 (09:19→20:55)
[2021-07-22] MEDS: CHOLECALCIFEROL (VITAMIN D3) 2,000 UNIT TABLET PO SCH (09:19)
[2021-07-22] MEDS: lisinopriL 20 MG TABLET PO SCH (09:20)
[2021-07-22] MEDS: FUROSEMIDE 40 MG TABLET PO SCH (09:20)
[2021-07-22] MEDS: DEXAMETHASONE SOD PHOSPHATE 10 MG/ML VIAL IVP SCH ×2 (09:21→12:04)
[2021-07-22] MEDS: CYCLOBENZAPRINE HCL 10 MG TABLET (FLEXERIL) PO SCH ×3 (09:21→20:54)
[2021-07-22] MEDS: GABAPENTIN 300 MG CAPSULE PO SCH ×2 (09:21→20:54)
[2021-07-22] MEDS: ASCORBIC ACID 500 MG TABLET PO SCH ×2 (09:22→20:54)
[2021-07-22] MEDS: BARICITINIB -Non-Formulary 2 MG TABLET PO SCH (09:22)
[2021-07-22] MEDS: ENOXAPARIN SODIUM 40 MG/0.4 ML SYRINGE SUBCUT SCH ×2 (09:24→12:04)
[2021-07-22] MEDS: AZITHROMYCIN 500 MG in NS 250 ML IV SCH (12:35)
[2021-07-22] MEDS: ARIPiprazole 5 MG TAB PO SCH (20:54)
[2021-07-22] MEDS ORDERED: KETOROLAC TROMETHAMINE 30 MG VIAL IVP ONE (21:15)
[2021-07-22] MEDS ORDERED: LORazepam 2 MG/ML VIAL IVP ONE (21:15)
[2021-07-22] MEDS ORDERED: LORazepam 2 MG/ML VIAL ONE (21:24)
[2021-07-22] MEDS ORDERED: KETOROLAC TROMETHAMINE 15 MG VIAL ONE (21:25)
[2021-07-23] VITALS (11 sets, daily range): BP systolic 109–148
[2021-07-23] MEDS: OXYCODONE/ACETAMINOPHEN *10*mg/325 mg TABLET PO PRN ×2 (03:08→15:12)
[2021-07-23] MEDS: ALBUTEROL MDI INHALATION 8 GM INH INH SCH (04:01)
[2021-07-23 06:12] LABS: HEMATOCRIT 32.3 % (36-48); HEMOGLOBIN 10.9 g/dL (12.0-16.0); LYMPHOCYTES # (AUTO) 0.5 K/uL (1.0-5.5); LYMPHOCYTES % (AUTO) 9.5 % (20.5-51.5); MEAN CORPUSCULAR HEMOGLOBIN 26 pg (27-31); MEAN CORPUSCULAR HGB CONC 34 % (32-36); MEAN CORPUSCULAR VOLUME 78 fL (79.0-98.0); MONOCYTES # (AUTO) 0.3 K/uL (0.0-1.0); MONOCYTES % (AUTO) 5.1 % (1.7-9.3); NEUTROPHILS # (AUTO) 4.7 K/uL (1.8-7.7); NEUTROPHILS % (AUTO) 85.4 % (40.0-70.0); PLATELET COUNT (AUTO) 132 K/uL (130-430); RED BLOOD CELL COUNT(AUTO) 4.16 MIL/uL (4.2-6.2); RED CELL DISTRIBUTION WIDTH 14.1 % (9.0-15.0)
[2021-07-23 06:39] LABS: CALCIUM 8.2 mg/dL (8.4-11.0); CREATININE 0.65 mg/dL (0.55-1.30); POTASSIUM 3.7 mmol/L (3.5-5.1)
[2021-07-23 07:23] LABS: C-REACTIVE PROTEIN QUANT 2.2 mg/dL (0-0.5)
[2021-07-23 08:42] LABS: WHITE BLOOD COUNT (AUTO) 5.5 K/uL (4.8-10.8)
[2021-07-23] MEDS: NACL 0.9% 1,000 ML IV SCH (09:00)
[2021-07-23] MEDS: DULoxetine HCL 30 MG CAPSULE.DR (CYMBALTA) PO SCH (09:45)
[2021-07-23] MEDS: ASCORBIC ACID 500 MG TABLET PO SCH ×2 (09:46→21:04)
[2021-07-23] MEDS: TOPIRAMATE 25 MG TABLET(TOPAMAX) PO SCH (09:46)
[2021-07-23] MEDS: DEXAMETHASONE SOD PHOSPHATE 10 MG/ML VIAL IVP SCH (09:46)
[2021-07-23] MEDS: CHOLECALCIFEROL (VITAMIN D3) 2,000 UNIT TABLET PO SCH (09:46)
[2021-07-23] MEDS: FUROSEMIDE 40 MG TABLET PO SCH (09:47)
[2021-07-23] MEDS: lisinopriL 20 MG TABLET PO SCH (09:47)
[2021-07-23] MEDS: BARICITINIB -Non-Formulary 2 MG TABLET PO SCH (09:48)
[2021-07-23] MEDS: GABAPENTIN 300 MG CAPSULE PO SCH ×2 (09:49→21:05)
[2021-07-23 09:52] LABS: ERYTHROCYTE SEDIMENTATION RATE 47 MM/HR (0-20)
[2021-07-23] MEDS: OSELTAMIVIR PHOSPHATE 75 MG CAPSULE PO SCH ×2 (09:57→21:04)
[2021-07-23] MEDS: ENOXAPARIN SODIUM 40 MG/0.4 ML SYRINGE SUBCUT SCH (09:58)
[2021-07-23] MEDS: cefTRIAXone 1 GM in D5W 50 ML IV SCH (10:20)
[2021-07-23] MEDS: CYCLOBENZAPRINE HCL 10 MG TABLET (FLEXERIL) PO SCH ×3 (10:20→21:04)
[2021-07-23] MEDS: AZITHROMYCIN 500 MG in NS 250 ML IV SCH (12:27)
[2021-07-23] MEDS ORDERED: ED NON STOCK ORDER 1 EA MISC PO ONE (13:45)
[2021-07-23] MEDS ORDERED: *HEPARIN PER PHARMACY XX ONE (13:45)
[2021-07-23] MEDS ORDERED: FAMOTIDINE PF 20 MG/2 ML VIAL IVP SCH (14:00)
[2021-07-23] MEDS ORDERED: IVERMECTIN 3 MG TABLET PO ONE (15:00)
[2021-07-23] MEDS ORDERED: THIAMINE HCL 100 MG TABLET PO ONE (15:00)
[2021-07-23] MEDS ORDERED: HEPARIN 25,000 UNITS in 250 ML PREMIX IV PRN (16:00)
[2021-07-23] MEDS ORDERED: HEPARIN SODIUM,PORCINE 5,000 UNITS/ML VIAL IVP ONE (16:00)
[2021-07-23] MEDS ORDERED: HEPARIN SODIUM,PORCINE 2000 UNITS/0.4 ML BOLUS IVP PRN (16:00)
[2021-07-23] MEDS ORDERED: HEPARIN SODIUM,PORCINE 3000 UNITS/0.6 ML BOLUS IVP PRN (16:00)
[2021-07-23] MEDS ORDERED: METHYLPREDNISOLONE SOD SUCC 40 MG/ML VIAL IVP ONE (18:30)
[2021-07-23] MEDS ORDERED: THIAMINE HCL 100 MG/ML VIAL ONE (20:09)
[2021-07-23] MEDS: MELATONIN 3 MG TABLET PO SCH (21:00)
[2021-07-23] MEDS: FAMOTIDINE 20 MG TABLET PO SCH (21:04)
[2021-07-23] MEDS: FLUVOXAMINE MALEATE 50 MG PO SCH (21:05)
[2021-07-23] MEDS: NS IV SCH (21:07)
[2021-07-23] MEDS: THIAMINE HCL IV SCH (21:07)
[2021-07-23] MEDS: ARIPiprazole 5 MG TAB PO SCH (21:07)
[2021-07-23] MEDS: HEPARIN SODIUM,PORCINE 5,000 UNITS/ML VIAL SUBCUT SCH (21:10)
[2021-07-24] VITALS (23 sets, daily range): BP systolic 115–167
[2021-07-24] MEDS: ALBUTEROL MDI INHALATION 8 GM INH INH SCH ×7 (00:26→23:23)
[2021-07-24] MEDS: OXYCODONE/ACETAMINOPHEN *10*mg/325 mg TABLET PO PRN ×3 (01:51→18:47)
[2021-07-24 07:04] LABS: BASOPHILS % (AUTO) 0.1 % (0.0-2.0); HEMATOCRIT 33.5 % (36-48); HEMOGLOBIN 11.4 g/dL (12.0-16.0); LYMPHOCYTES # (AUTO) 0.4 K/uL (1.0-5.5); LYMPHOCYTES % (AUTO) 9.2 % (20.5-51.5); MEAN CORPUSCULAR HEMOGLOBIN 26 pg (27-31); MEAN CORPUSCULAR HGB CONC 34 % (32-36); MEAN CORPUSCULAR VOLUME 78 fL (79.0-98.0); MONOCYTES # (AUTO) 0.3 K/uL (0.0-1.0); MONOCYTES % (AUTO) 5.9 % (1.7-9.3); NEUTROPHILS % (AUTO) 84.8 % (40.0-70.0); PLATELET COUNT (AUTO) 139 K/uL (130-430); RED BLOOD CELL COUNT(AUTO) 4.32 MIL/uL (4.2-6.2); WHITE BLOOD COUNT (AUTO) 4.8 K/uL (4.8-10.8)
[2021-07-24 07:18] LABS: CALCIUM 7.9 mg/dL (8.4-11.0); CREATININE 0.76 mg/dL (0.55-1.30); POTASSIUM 3.9 mmol/L (3.5-5.1)
[2021-07-24 07:23] LABS: C-REACTIVE PROTEIN QUANT 1.1 mg/dL (0-0.5)
[2021-07-24] MEDS: LORazepam 2 MG/ML VIAL IVP PRN ×2 (08:46→18:46)
[2021-07-24 08:52] LABS: ERYTHROCYTE SEDIMENTATION RATE 45 MM/HR (0-20)
[2021-07-24] MEDS: IVERMECTIN 3 MG TABLET PO SCH (09:00)
[2021-07-24] MEDS ORDERED: IVERMECTIN 3 MG TABLET PO SCH (09:00)
[2021-07-24] MEDS: CYCLOBENZAPRINE HCL 10 MG TABLET (FLEXERIL) PO SCH ×3 (09:00→20:27)
[2021-07-24] MEDS ORDERED: THIAMINE HCL 100 MG TABLET PO SCH (09:00)
[2021-07-24] MEDS: cefTRIAXone 1 GM in D5W 50 ML IV SCH (10:00)
[2021-07-24] MEDS ORDERED: THIAMINE HCL 100 MG/ML VIAL ONE (10:07)
[2021-07-24] MEDS: DULoxetine HCL 30 MG CAPSULE.DR (CYMBALTA) PO SCH (10:11)
[2021-07-24] MEDS: METHYLPREDNISOLONE SOD SUCC 40 MG/ML VIAL IVP SCH ×2 (10:11→20:27)
[2021-07-24] MEDS: THIAMINE HCL IV SCH ×2 (10:11→21:00)
[2021-07-24] MEDS: NS IV SCH ×2 (10:11→21:00)
[2021-07-24] MEDS: FUROSEMIDE 40 MG TABLET PO SCH (10:12)
[2021-07-24] MEDS: GABAPENTIN 300 MG CAPSULE PO SCH ×2 (10:13→20:27)
[2021-07-24] MEDS: FAMOTIDINE 20 MG TABLET PO SCH ×2 (10:14→20:28)
[2021-07-24] MEDS: ASCORBIC ACID 500 MG TABLET PO SCH ×2 (10:15→20:28)
[2021-07-24] MEDS: OSELTAMIVIR PHOSPHATE 75 MG CAPSULE PO SCH ×2 (10:15→20:28)
[2021-07-24] MEDS: lisinopriL 20 MG TABLET PO SCH (10:15)
[2021-07-24] MEDS: TOPIRAMATE 25 MG TABLET(TOPAMAX) PO SCH (10:15)
[2021-07-24] MEDS: CHOLECALCIFEROL (VITAMIN D3) 2,000 UNIT TABLET PO SCH (10:16)
[2021-07-24] MEDS: HEPARIN SODIUM,PORCINE 5,000 UNITS/ML VIAL SUBCUT SCH ×2 (10:17→21:20)
[2021-07-24] MEDS: BARICITINIB -Non-Formulary 2 MG TABLET PO SCH (11:55)
[2021-07-24] MEDS: AZITHROMYCIN 500 MG in NS 250 ML IV SCH (12:35)
[2021-07-24] MEDS: PIPERACILLIN/TAZO 4.5GM/DEX-IS 100 ML IV SCH ×2 (14:54→21:21)
[2021-07-24] MEDS: MELATONIN 3 MG TABLET PO SCH (20:28)
[2021-07-24] MEDS: ARIPiprazole 5 MG TAB PO SCH (20:28)
[2021-07-24] MEDS: FLUVOXAMINE MALEATE 50 MG PO SCH (20:59)
[2021-07-25] VITALS (23 sets, daily range): BP systolic 104–182
[2021-07-25] MEDS: LORazepam 2 MG/ML VIAL IVP PRN ×2 (00:11→22:24)
[2021-07-25] MEDS: NACL 0.9% 1,000 ML IV SCH ×3 (01:00→20:17)
[2021-07-25] MEDS: OXYCODONE/ACETAMINOPHEN *10*mg/325 mg TABLET PO PRN ×4 (02:32→23:57)
[2021-07-25] MEDS: ALBUTEROL MDI INHALATION 8 GM INH INH SCH ×4 (03:35→15:00)
[2021-07-25] MEDS: PIPERACILLIN/TAZO 4.5GM/DEX-IS 100 ML IV SCH ×3 (06:05→22:25)
[2021-07-25 06:06] LABS: BASOPHILS % (AUTO) 0.1 % (0.0-2.0); EOSINOPHILS % (AUTO) 0.1 % (0.0-4.0); HEMATOCRIT 34.9 % (36-48); HEMOGLOBIN 11.8 g/dL (12.0-16.0); LYMPHOCYTES # (AUTO) 0.4 K/uL (1.0-5.5); LYMPHOCYTES % (AUTO) 7.3 % (20.5-51.5); MEAN CORPUSCULAR HEMOGLOBIN 26 pg (27-31); MEAN CORPUSCULAR HGB CONC 34 % (32-36); MEAN CORPUSCULAR VOLUME 78 fL (79.0-98.0); MONOCYTES # (AUTO) 0.3 K/uL (0.0-1.0); MONOCYTES % (AUTO) 5.2 % (1.7-9.3); NEUTROPHILS # (AUTO) 5.3 K/uL (1.8-7.7); NEUTROPHILS % (AUTO) 87.3 % (40.0-70.0); PLATELET COUNT (AUTO) 152 K/uL (130-430); RED BLOOD CELL COUNT(AUTO) 4.49 MIL/uL (4.2-6.2); RED CELL DISTRIBUTION WIDTH 13.8 % (9.0-15.0)
[2021-07-25 06:23] LABS: CALCIUM 8.1 mg/dL (8.4-11.0); CREATININE 0.79 mg/dL (0.55-1.30); POTASSIUM 3.5 mmol/L (3.5-5.1)
[2021-07-25 07:07] LABS: C-REACTIVE PROTEIN QUANT 1.6 mg/dL (0-0.5)
[2021-07-25] MEDS: NS IV SCH ×2 (08:08→20:15)
[2021-07-25] MEDS: THIAMINE HCL IV SCH ×2 (08:08→20:15)
[2021-07-25] MEDS: METHYLPREDNISOLONE SOD SUCC 40 MG/ML VIAL IVP SCH ×2 (08:10→20:16)
[2021-07-25] MEDS: BARICITINIB -Non-Formulary 2 MG TABLET PO SCH (08:11)
[2021-07-25] MEDS: FAMOTIDINE 20 MG TABLET PO SCH ×2 (08:11→20:16)
[2021-07-25] MEDS: GABAPENTIN 300 MG CAPSULE PO SCH ×2 (08:11→20:15)
[2021-07-25] MEDS: ASCORBIC ACID 500 MG TABLET PO SCH ×2 (08:11→20:13)
[2021-07-25] MEDS: DULoxetine HCL 30 MG CAPSULE.DR (CYMBALTA) PO SCH (08:11)
[2021-07-25] MEDS: lisinopriL 20 MG TABLET PO SCH (08:11)
[2021-07-25] MEDS: CHOLECALCIFEROL (VITAMIN D3) 2,000 UNIT TABLET PO SCH (08:12)
[2021-07-25] MEDS: CYCLOBENZAPRINE HCL 10 MG TABLET (FLEXERIL) PO SCH ×3 (08:12→20:14)
[2021-07-25] MEDS: TOPIRAMATE 25 MG TABLET(TOPAMAX) PO SCH (08:13)
[2021-07-25] MEDS: FUROSEMIDE 40 MG TABLET PO SCH (08:13)
[2021-07-25] MEDS: IVERMECTIN 3 MG TABLET PO SCH (08:14)
[2021-07-25] MEDS: HEPARIN SODIUM,PORCINE 5,000 UNITS/ML VIAL SUBCUT SCH (08:17)
[2021-07-25] MEDS: OSELTAMIVIR PHOSPHATE 75 MG CAPSULE PO SCH ×2 (08:20→20:16)
[2021-07-25] MEDS: TOCILIZUMAB 400 MG in NS 100 ML IV ONE ×2 (11:00→18:29)
[2021-07-25 12:31] LABS: ERYTHROCYTE SEDIMENTATION RATE 46 MM/HR (0-20)
[2021-07-25] MEDS: AZITHROMYCIN 500 MG in NS 250 ML IV SCH (13:19)
[2021-07-25] MEDS ORDERED: THIAMINE HCL 100 MG/ML VIAL ONE (20:10)
[2021-07-25] MEDS: ARIPiprazole 5 MG TAB PO SCH (20:14)
[2021-07-25] MEDS: MELATONIN 3 MG TABLET PO SCH (20:16)
[2021-07-25] MEDS: FLUVOXAMINE MALEATE 50 MG PO SCH (20:20)
[2021-07-26] VITALS (21 sets, daily range): BP systolic 108–156
[2021-07-26] MEDS ORDERED: DEXMEDETOMIDINE HCL 200 MCG/2 ML VIAL IV ONE ×3 (00:32→04:20)
[2021-07-26] MEDS: DEXMEDETOMIDINE HCL 200 MCG in NS 48 ML IV PRN ×3 (01:43→05:16)
[2021-07-26] MEDS: PIPERACILLIN/TAZO 4.5GM/DEX-IS 100 ML IV SCH ×3 (05:13→22:35)
[2021-07-26] MEDS: NACL 0.9% 1,000 ML IV SCH ×2 (05:14→17:00)
[2021-07-26 06:09] LABS: ALBUMIN 2.4 g/dL (3.4-4.8); CALCIUM 7.8 mg/dL (8.4-11.0); CREATININE 0.72 mg/dL (0.55-1.30); PHOSPHORUS 2.8 mg/dL (2.7-4.5); POTASSIUM 3.6 mmol/L (3.5-5.1); TOTAL BILIRUBIN 0.3 mg/dL (0.0-1.0)
[2021-07-26 06:11] LABS: BASOPHILS % (AUTO) 0.1 % (0.0-2.0); HEMOGLOBIN 11.6 g/dL (12.0-16.0); LYMPHOCYTES # (AUTO) 0.4 K/uL (1.0-5.5); LYMPHOCYTES % (AUTO) 7.6 % (20.5-51.5); MEAN CORPUSCULAR HEMOGLOBIN 26 pg (27-31); MEAN CORPUSCULAR HGB CONC 33 % (32-36); MEAN CORPUSCULAR VOLUME 78 fL (79.0-98.0); MONOCYTES # (AUTO) 0.2 K/uL (0.0-1.0); MONOCYTES % (AUTO) 4.5 % (1.7-9.3); NEUTROPHILS # (AUTO) 4.3 K/uL (1.8-7.7); NEUTROPHILS % (AUTO) 87.8 % (40.0-70.0); PLATELET COUNT (AUTO) 142 K/uL (130-430); RED BLOOD CELL COUNT(AUTO) 4.48 MIL/uL (4.2-6.2); RED CELL DISTRIBUTION WIDTH 13.9 % (9.0-15.0); WHITE BLOOD COUNT (AUTO) 4.9 K/uL (4.8-10.8)
[2021-07-26 06:38] LABS: C-REACTIVE PROTEIN QUANT 2.5 mg/dL (0-0.5)
[2021-07-26 08:54] LABS: ERYTHROCYTE SEDIMENTATION RATE 33 MM/HR (0-20)
[2021-07-26] MEDS: NS IV SCH ×2 (09:00→21:39)
[2021-07-26] MEDS: THIAMINE HCL IV SCH ×2 (09:00→21:39)
[2021-07-26] MEDS ORDERED: TOCILIZUMAB 400 MG in NS 100 ML IV ONE (09:00)
[2021-07-26] MEDS: METHYLPREDNISOLONE SOD SUCC 40 MG/ML VIAL IVP SCH ×2 (09:29→21:39)
[2021-07-26] MEDS: ASCORBIC ACID 500 MG TABLET PO SCH ×2 (09:30→21:40)
[2021-07-26] MEDS: CHOLECALCIFEROL (VITAMIN D3) 2,000 UNIT TABLET PO SCH (09:30)
[2021-07-26] MEDS: GABAPENTIN 300 MG CAPSULE PO SCH ×2 (09:30→21:40)
[2021-07-26] MEDS: FAMOTIDINE 20 MG TABLET PO SCH ×2 (09:30→21:40)
[2021-07-26] MEDS: DULoxetine HCL 30 MG CAPSULE.DR (CYMBALTA) PO SCH (09:31)
[2021-07-26] MEDS: CYCLOBENZAPRINE HCL 10 MG TABLET (FLEXERIL) PO SCH ×3 (09:31→21:40)
[2021-07-26] MEDS: TOPIRAMATE 25 MG TABLET(TOPAMAX) PO SCH (09:31)
[2021-07-26] MEDS: FUROSEMIDE 40 MG TABLET PO SCH (09:31)
[2021-07-26] MEDS: BARICITINIB -Non-Formulary 2 MG TABLET PO SCH (09:34)
[2021-07-26] MEDS: lisinopriL 20 MG TABLET PO SCH (09:36)
[2021-07-26] MEDS: ALBUTEROL MDI INHALATION 8 GM INH INH SCH ×5 (09:40→23:00)
[2021-07-26] MEDS: IVERMECTIN 3 MG TABLET PO SCH (10:14)
[2021-07-26] MEDS: OSELTAMIVIR PHOSPHATE 75 MG CAPSULE PO SCH (11:02)
[2021-07-26] MEDS ORDERED: BUDESONIDE 0.5 MG/2 ML AMPUL.NEB INH ONE (11:45)
[2021-07-26] MEDS: OXYCODONE/ACETAMINOPHEN *10*mg/325 mg TABLET PO PRN (14:40)
[2021-07-26] MEDS: CYPROHEPTADINE 4 MG TAB PO SCH ×2 (17:33→21:40)
[2021-07-26] MEDS: BUDESONIDE 0.5 MG/2 ML AMPUL.NEB INH SCH (21:39)
[2021-07-26] MEDS: ATORVASTATIN 20 MG TABLET PO SCH (21:40)
[2021-07-26] MEDS: ARIPiprazole 5 MG TAB PO SCH (21:40)
[2021-07-26] MEDS: FLUVOXAMINE MALEATE 50 MG PO SCH (21:40)
[2021-07-26] MEDS: MELATONIN 3 MG TABLET PO SCH (21:40)
[2021-07-27] VITALS (23 sets, daily range): BP systolic 96–150
[2021-07-27] MEDS: ALBUTEROL MDI INHALATION 8 GM INH INH SCH ×6 (03:00→23:23)
[2021-07-27] MEDS: NACL 0.9% 1,000 ML IV SCH ×2 (03:25→15:17)
[2021-07-27] MEDS: OXYCODONE/ACETAMINOPHEN *10*mg/325 mg TABLET PO PRN ×3 (03:26→23:44)
[2021-07-27] MEDS: NS IV SCH ×2 (08:50→21:04)
[2021-07-27] MEDS: PIPERACILLIN/TAZO 4.5GM/DEX-IS 100 ML IV SCH ×3 (08:50→22:53)
[2021-07-27] MEDS: THIAMINE HCL IV SCH ×2 (08:50→21:04)
[2021-07-27] MEDS: BARICITINIB -Non-Formulary 2 MG TABLET PO SCH (08:51)
[2021-07-27] MEDS: CYPROHEPTADINE 4 MG TAB PO SCH ×3 (08:52→21:04)
[2021-07-27] MEDS: DULoxetine HCL 30 MG CAPSULE.DR (CYMBALTA) PO SCH (08:53)
[2021-07-27] MEDS: IVERMECTIN 3 MG TABLET PO SCH (08:53)
[2021-07-27] MEDS: METHYLPREDNISOLONE SOD SUCC 40 MG/ML VIAL IVP SCH ×2 (08:53→21:06)
[2021-07-27] MEDS: lisinopriL 20 MG TABLET PO SCH (08:56)
[2021-07-27] MEDS: CYCLOBENZAPRINE HCL 10 MG TABLET (FLEXERIL) PO SCH ×3 (08:56→21:06)
[2021-07-27] MEDS: CHOLECALCIFEROL (VITAMIN D3) 2,000 UNIT TABLET PO SCH (08:57)
[2021-07-27] MEDS: ASCORBIC ACID 500 MG TABLET PO SCH ×2 (08:57→21:05)
[2021-07-27] MEDS: GABAPENTIN 300 MG CAPSULE PO SCH ×2 (08:57→21:02)
[2021-07-27] MEDS: FAMOTIDINE 20 MG TABLET PO SCH ×2 (08:58→21:05)
[2021-07-27] MEDS: FUROSEMIDE 40 MG TABLET PO SCH (08:59)
[2021-07-27] MEDS: TOPIRAMATE 25 MG TABLET(TOPAMAX) PO SCH (09:00)
[2021-07-27] MEDS: BUDESONIDE 0.5 MG/2 ML AMPUL.NEB INH SCH (09:00)
[2021-07-27] MEDS: IBUPROFEN 800 MG TABLET PO PRN (09:09)
[2021-07-27 12:29] LABS: BASOPHILS % (AUTO) 0.3 % (0.0-2.0); EOSINOPHILS % (AUTO) 0.6 % (0.0-4.0); HEMATOCRIT 34.9 % (36-48); HEMOGLOBIN 11.5 g/dL (12.0-16.0); LYMPHOCYTES # (AUTO) 0.3 K/uL (1.0-5.5); LYMPHOCYTES % (AUTO) 4.4 % (20.5-51.5); MEAN CORPUSCULAR HEMOGLOBIN 26 pg (27-31); MEAN CORPUSCULAR HGB CONC 33 % (32-36); MEAN CORPUSCULAR VOLUME 78 fL (79.0-98.0); MONOCYTES # (AUTO) 0.3 K/uL (0.0-1.0); MONOCYTES % (AUTO) 3.3 % (1.7-9.3); NEUTROPHILS # (AUTO) 7.1 K/uL (1.8-7.7); NEUTROPHILS % (AUTO) 91.4 % (40.0-70.0); PLATELET COUNT (AUTO) 161 K/uL (130-430); RED BLOOD CELL COUNT(AUTO) 4.47 MIL/uL (4.2-6.2); RED CELL DISTRIBUTION WIDTH 13.8 % (9.0-15.0); WHITE BLOOD COUNT (AUTO) 7.8 K/uL (4.8-10.8)
[2021-07-27 12:32] LABS: CREATININE 0.71 mg/dL (0.55-1.30); POTASSIUM 3.1 mmol/L (3.5-5.1)
[2021-07-27 12:38] LABS: ALBUMIN 2.6 g/dL (3.4-4.8); TOTAL BILIRUBIN 0.5 mg/dL (0.0-1.0)
[2021-07-27] MEDS ORDERED: POTASSIUM CHLORIDE 40 MEQ in NS 250 ML IV ONE (20:30)
[2021-07-27] MEDS ORDERED: KCL 20 mEq in 100 mL (PREMIX) 100 ML IV SCH (21:00)
[2021-07-27] MEDS: ATORVASTATIN 20 MG TABLET PO SCH (21:02)
[2021-07-27] MEDS: MELATONIN 3 MG TABLET PO SCH (21:02)
[2021-07-27] MEDS: FLUVOXAMINE MALEATE 50 MG PO SCH (21:05)
[2021-07-27] MEDS: ARIPiprazole 5 MG TAB PO SCH (21:07)
[2021-07-28] VITALS (20 sets, daily range): BP systolic 104–185
[2021-07-28] MEDS: ALBUTEROL MDI INHALATION 8 GM INH INH SCH ×3 (03:21→11:00)
[2021-07-28] MEDS: OXYCODONE/ACETAMINOPHEN *10*mg/325 mg TABLET PO PRN ×2 (04:15→19:16)
[2021-07-28 06:34] LABS: BASOPHILS % (AUTO) 0.5 % (0.0-2.0); EOSINOPHILS % (AUTO) 0.7 % (0.0-4.0); HEMOGLOBIN 11.4 g/dL (12.0-16.0); LYMPHOCYTES # (AUTO) 0.1 K/uL (1.0-5.5); LYMPHOCYTES % (AUTO) 2.3 % (20.5-51.5); MEAN CORPUSCULAR HEMOGLOBIN 26 pg (27-31); MEAN CORPUSCULAR HGB CONC 33 % (32-36); MEAN CORPUSCULAR VOLUME 78 fL (79.0-98.0); MONOCYTES # (AUTO) 0.1 K/uL (0.0-1.0); MONOCYTES % (AUTO) 1.4 % (1.7-9.3); NEUTROPHILS # (AUTO) 6.1 K/uL (1.8-7.7); NEUTROPHILS % (AUTO) 95.1 % (40.0-70.0); PLATELET COUNT (AUTO) 138 K/uL (130-430); RED BLOOD CELL COUNT(AUTO) 4.35 MIL/uL (4.2-6.2); RED CELL DISTRIBUTION WIDTH 13.8 % (9.0-15.0); WHITE BLOOD COUNT (AUTO) 6.4 K/uL (4.8-10.8)
[2021-07-28 07:00] LABS: CALCIUM 7.9 mg/dL (8.4-11.0); CREATININE 0.59 mg/dL (0.55-1.30); POTASSIUM 3.1 mmol/L (3.5-5.1)
[2021-07-28] MEDS: PIPERACILLIN/TAZO 4.5GM/DEX-IS 100 ML IV SCH ×3 (07:06→21:04)
[2021-07-28 07:31] LABS: C-REACTIVE PROTEIN QUANT 0.4 mg/dL (0-0.5)
[2021-07-28] MEDS ORDERED: *HEPARIN PER PHARMACY XX ONE (07:45)
[2021-07-28] MEDS ORDERED: HEPARIN SODIUM,PORCINE 3000 UNITS/0.6 ML BOLUS IVP PRN (08:00)
[2021-07-28] MEDS ORDERED: HEPARIN SODIUM,PORCINE 2000 UNITS/0.4 ML BOLUS IVP PRN (08:00)
[2021-07-28] MEDS ORDERED: HEPARIN SODIUM,PORCINE 5,000 UNITS/ML VIAL IVP ONE (08:00)
[2021-07-28 08:59] LABS: ERYTHROCYTE SEDIMENTATION RATE 13 MM/HR (0-20)
[2021-07-28] MEDS: NACL 0.9% 1,000 ML IV SCH ×2 (09:00→19:00)
[2021-07-28] MEDS: THIAMINE HCL IV SCH ×2 (09:19→21:04)
[2021-07-28] MEDS: NS IV SCH ×2 (09:19→21:04)
[2021-07-28] MEDS: BARICITINIB -Non-Formulary 2 MG TABLET PO SCH (09:21)
[2021-07-28] MEDS: IVERMECTIN 3 MG TABLET PO SCH (09:22)
[2021-07-28] MEDS: GABAPENTIN 300 MG CAPSULE PO SCH ×2 (09:22→21:01)
[2021-07-28] MEDS: ASCORBIC ACID 500 MG TABLET PO SCH ×2 (09:22→21:02)
[2021-07-28] MEDS: TOPIRAMATE 25 MG TABLET(TOPAMAX) PO SCH (09:23)
[2021-07-28] MEDS: CHOLECALCIFEROL (VITAMIN D3) 2,000 UNIT TABLET PO SCH (09:23)
[2021-07-28] MEDS: CYCLOBENZAPRINE HCL 10 MG TABLET (FLEXERIL) PO SCH ×3 (09:23→21:02)
[2021-07-28] MEDS: FUROSEMIDE 40 MG TABLET PO SCH (09:25)
[2021-07-28] MEDS: DULoxetine HCL 30 MG CAPSULE.DR (CYMBALTA) PO SCH (09:25)
[2021-07-28] MEDS: METHYLPREDNISOLONE SOD SUCC 40 MG/ML VIAL IVP SCH ×2 (09:33→21:04)
[2021-07-28] MEDS: CYPROHEPTADINE 4 MG TAB PO SCH ×3 (09:35→21:01)
[2021-07-28] MEDS: lisinopriL 20 MG TABLET PO SCH (09:35)
[2021-07-28] MEDS: FAMOTIDINE 20 MG TABLET PO SCH ×2 (10:00→21:01)
[2021-07-28] MEDS: BUDESONIDE 0.5 MG/2 ML AMPUL.NEB INH SCH (10:29)
[2021-07-28] MEDS: HEPARIN 25,000 UNITS in 250 ML PREMIX IV PRN ×2 (13:09→13:14)
[2021-07-28] MEDS: MELATONIN 3 MG TABLET PO SCH (21:00)
[2021-07-28] MEDS: ATORVASTATIN 20 MG TABLET PO SCH (21:00)
[2021-07-28] MEDS: FLUVOXAMINE MALEATE 50 MG PO SCH (21:02)
[2021-07-28] MEDS: ARIPiprazole 5 MG TAB PO SCH (21:03)
[2021-07-29] VITALS (23 sets, daily range): BP systolic 100–151
[2021-07-29] MEDS: ALBUTEROL MDI INHALATION 8 GM INH INH SCH ×5 (00:03→23:28)
[2021-07-29] MEDS: BUDESONIDE 0.5 MG/2 ML AMPUL.NEB INH SCH ×2 (00:03→21:00)
[2021-07-29] MEDS: OXYCODONE/ACETAMINOPHEN *10*mg/325 mg TABLET PO PRN ×4 (02:12→20:41)
[2021-07-29 06:24] LABS: EOSINOPHILS # (AUTO) 0.1 K/uL (0.0-0.4); EOSINOPHILS % (AUTO) 1.2 % (0.0-4.0); HEMATOCRIT 34.9 % (36-48); HEMOGLOBIN 11.6 g/dL (12.0-16.0); LYMPHOCYTES # (AUTO) 0.2 K/uL (1.0-5.5); LYMPHOCYTES % (AUTO) 3.8 % (20.5-51.5); MEAN CORPUSCULAR HEMOGLOBIN 26 pg (27-31); MEAN CORPUSCULAR HGB CONC 33 % (32-36); MEAN CORPUSCULAR VOLUME 79 fL (79.0-98.0); MONOCYTES # (AUTO) 0.2 K/uL (0.0-1.0); MONOCYTES % (AUTO) 2.6 % (1.7-9.3); NEUTROPHILS # (AUTO) 5.7 K/uL (1.8-7.7); NEUTROPHILS % (AUTO) 92.4 % (40.0-70.0); PLATELET COUNT (AUTO) 143 K/uL (130-430); RED BLOOD CELL COUNT(AUTO) 4.45 MIL/uL (4.2-6.2); RED CELL DISTRIBUTION WIDTH 13.9 % (9.0-15.0); WHITE BLOOD COUNT (AUTO) 6.2 K/uL (4.8-10.8)
[2021-07-29 06:42] LABS: ALANINE AMINOTRANSFERASE 45 U/L (12-78); ALBUMIN 2.7 g/dL (3.4-4.8); ANION GAP 9 (5-15); ASPARTATE AMINOTRANSFERASE 64 U/L (10-37); CALCIUM 7.3 mg/dL (8.4-11.0); CHLORIDE 101 mmol/L (98-107); CREATININE 0.63 mg/dL (0.55-1.30); GLUCOSE 136 mg/dL (70-99); POTASSIUM 3.1 mmol/L (3.5-5.1); SODIUM SERUM 140 mmol/L (136-145); TOTAL BILIRUBIN 0.5 mg/dL (0.0-1.0); UREA NITROGEN, BLOOD 13 mg/dL (8-21)
[2021-07-29] MEDS: PIPERACILLIN/TAZO 4.5GM/DEX-IS 100 ML IV SCH ×3 (07:05→22:00)
[2021-07-29 07:41] LABS: GFR AFRICAN AMERICAN 122 mL/min (>90)
[2021-07-29 08:06] LABS: C-REACTIVE PROTEIN QUANT < 0.2 mg/dL (0-0.5)
[2021-07-29] MEDS: NACL 0.9% 1,000 ML IV SCH (08:55)
[2021-07-29] MEDS: NS IV SCH ×2 (09:09→20:35)
[2021-07-29] MEDS: THIAMINE HCL IV SCH ×2 (09:09→20:35)
[2021-07-29] MEDS: lisinopriL 20 MG TABLET PO SCH (09:10)
[2021-07-29] MEDS: CHOLECALCIFEROL (VITAMIN D3) 2,000 UNIT TABLET PO SCH (09:10)
[2021-07-29] MEDS: ASCORBIC ACID 500 MG TABLET PO SCH ×2 (09:11→20:40)
[2021-07-29] MEDS: GABAPENTIN 300 MG CAPSULE PO SCH ×2 (09:11→20:40)
[2021-07-29] MEDS: FAMOTIDINE 20 MG TABLET PO SCH ×2 (09:11→20:40)
[2021-07-29] MEDS: TOPIRAMATE 25 MG TABLET(TOPAMAX) PO SCH (09:11)
[2021-07-29] MEDS: DULoxetine HCL 30 MG CAPSULE.DR (CYMBALTA) PO SCH (09:12)
[2021-07-29] MEDS: FUROSEMIDE 40 MG TABLET PO SCH (09:12)
[2021-07-29] MEDS: CYCLOBENZAPRINE HCL 10 MG TABLET (FLEXERIL) PO SCH ×3 (09:12→20:39)
[2021-07-29] MEDS: METHYLPREDNISOLONE SOD SUCC 40 MG/ML VIAL IVP SCH ×2 (09:14→20:35)
[2021-07-29] MEDS: BARICITINIB -Non-Formulary 2 MG TABLET PO SCH (09:15)
[2021-07-29] MEDS: CYPROHEPTADINE 4 MG TAB PO SCH ×3 (09:16→20:40)
[2021-07-29] MEDS: IVERMECTIN 3 MG TABLET PO SCH (09:17)
[2021-07-29 09:26] LABS: ERYTHROCYTE SEDIMENTATION RATE 2 MM/HR (0-20)
[2021-07-29] MEDS ORDERED: POTASSIUM CHLORIDE 20 MEQ TAB.PRT.SR PO ONE (12:00)
[2021-07-29] MEDS: HEPARIN SODIUM,PORCINE 5,000 UNITS/ML VIAL SUBCUT SCH ×2 (14:20→22:00)
[2021-07-29] MEDS: ARIPiprazole 5 MG TAB PO SCH (20:39)
[2021-07-29] MEDS: ATORVASTATIN 20 MG TABLET PO SCH (20:39)
[2021-07-29] MEDS: FLUVOXAMINE MALEATE 50 MG PO SCH (20:40)
[2021-07-29] MEDS: MELATONIN 3 MG TABLET PO SCH (20:40)
[2021-07-30] VITALS (24 sets, daily range): BP systolic 105–177
[2021-07-30] MEDS: OXYCODONE/ACETAMINOPHEN *10*mg/325 mg TABLET PO PRN ×4 (01:16→21:42)
[2021-07-30] MEDS: ALBUTEROL MDI INHALATION 8 GM INH INH SCH ×7 (03:32→23:35)
[2021-07-30] MEDS: PIPERACILLIN/TAZO 4.5GM/DEX-IS 100 ML IV SCH ×3 (05:46→21:20)
[2021-07-30] MEDS: NACL 0.9% 1,000 ML IV SCH ×4 (05:46→21:00)
[2021-07-30] MEDS: HEPARIN SODIUM,PORCINE 5,000 UNITS/ML VIAL SUBCUT SCH ×3 (05:50→21:17)
[2021-07-30 06:32] LABS: ANION GAP 8 (5-15); BASOPHILS % (AUTO) 0.1 % (0.0-2.0); CALCIUM 7.4 mg/dL (8.4-11.0); CHLORIDE 101 mmol/L (98-107); CREATININE 0.59 mg/dL (0.55-1.30); EOSINOPHILS % (AUTO) 0.4 % (0.0-4.0); GLUCOSE 127 mg/dL (70-99); HEMATOCRIT 35.2 % (36-48); HEMOGLOBIN 11.8 g/dL (12.0-16.0); LYMPHOCYTES # (AUTO) 0.3 K/uL (1.0-5.5); LYMPHOCYTES % (AUTO) 3.6 % (20.5-51.5); MEAN CORPUSCULAR HEMOGLOBIN 27 pg (27-31); MEAN CORPUSCULAR HGB CONC 34 % (32-36); MEAN CORPUSCULAR VOLUME 79 fL (79.0-98.0); MONOCYTES # (AUTO) 0.2 K/uL (0.0-1.0); MONOCYTES % (AUTO) 2.9 % (1.7-9.3); NEUTROPHILS # (AUTO) 6.8 K/uL (1.8-7.7); PLATELET COUNT (AUTO) 166 K/uL (130-430); POTASSIUM 3.6 mmol/L (3.5-5.1); RED BLOOD CELL COUNT(AUTO) 4.45 MIL/uL (4.2-6.2); RED CELL DISTRIBUTION WIDTH 13.8 % (9.0-15.0); SODIUM SERUM 139 mmol/L (136-145); UREA NITROGEN, BLOOD 14 mg/dL (8-21); WHITE BLOOD COUNT (AUTO) 7.3 K/uL (4.8-10.8)
[2021-07-30 07:31] LABS: GFR AFRICAN AMERICAN 131 mL/min (>90)
[2021-07-30] MEDS: CYCLOBENZAPRINE HCL 10 MG TABLET (FLEXERIL) PO SCH ×3 (08:56→21:13)
[2021-07-30] MEDS: GABAPENTIN 300 MG CAPSULE PO SCH ×2 (08:56→21:14)
[2021-07-30] MEDS: CHOLECALCIFEROL (VITAMIN D3) 2,000 UNIT TABLET PO SCH (08:56)
[2021-07-30] MEDS: METHYLPREDNISOLONE SOD SUCC 40 MG/ML VIAL IVP SCH ×2 (08:56→21:13)
[2021-07-30] MEDS: ASCORBIC ACID 500 MG TABLET PO SCH ×2 (08:57→21:13)
[2021-07-30] MEDS: DULoxetine HCL 30 MG CAPSULE.DR (CYMBALTA) PO SCH (08:57)
[2021-07-30] MEDS: FUROSEMIDE 40 MG TABLET PO SCH (08:58)
[2021-07-30] MEDS: lisinopriL 20 MG TABLET PO SCH (08:58)
[2021-07-30] MEDS: BUDESONIDE 0.5 MG/2 ML AMPUL.NEB INH SCH ×2 (09:00→21:20)
[2021-07-30] MEDS: CYPROHEPTADINE 4 MG TAB PO SCH ×3 (09:05→21:26)
[2021-07-30] MEDS: BARICITINIB -Non-Formulary 2 MG TABLET PO SCH (09:06)
[2021-07-30] MEDS: IBUPROFEN 800 MG TABLET PO PRN (09:07)
[2021-07-30] MEDS: TOPIRAMATE 25 MG TABLET(TOPAMAX) PO SCH (09:14)
[2021-07-30] MEDS: IVERMECTIN 3 MG TABLET PO SCH (09:14)
[2021-07-30] MEDS: NS IV SCH (09:15)
[2021-07-30] MEDS: THIAMINE HCL IV SCH (09:15)
[2021-07-30 10:11] LABS: C-REACTIVE PROTEIN QUANT < 0.2 mg/dL (0-0.5)
[2021-07-30 10:20] LABS: ERYTHROCYTE SEDIMENTATION RATE 8 MM/HR (0-20)
[2021-07-30] MEDS: FAMOTIDINE 20 MG TABLET PO SCH ×2 (13:28→21:16)
[2021-07-30] MEDS: ATORVASTATIN 20 MG TABLET PO SCH (21:14)
[2021-07-30] MEDS: ARIPiprazole 5 MG TAB PO SCH (21:15)
[2021-07-30] MEDS: MELATONIN 3 MG TABLET PO SCH (21:16)
[2021-07-30] MEDS: FLUVOXAMINE MALEATE 50 MG PO SCH (21:26)
[2021-07-31] VITALS (23 sets, daily range): BP systolic 99–183
[2021-07-31] MEDS: ALBUTEROL MDI INHALATION 8 GM INH INH SCH ×6 (03:17→23:55)
[2021-07-31] MEDS: NACL 0.9% 1,000 ML IV SCH ×3 (03:44→17:00)
[2021-07-31] MEDS: PIPERACILLIN/TAZO 4.5GM/DEX-IS 100 ML IV SCH ×3 (05:32→21:11)
[2021-07-31] MEDS: HEPARIN SODIUM,PORCINE 5,000 UNITS/ML VIAL SUBCUT SCH ×3 (05:34→21:14)
[2021-07-31] MEDS: OXYCODONE/ACETAMINOPHEN *10*mg/325 mg TABLET PO PRN ×3 (05:44→21:58)
[2021-07-31 06:17] LABS: BASOPHILS % (AUTO) 0.2 % (0.0-2.0); EOSINOPHILS % (AUTO) 0.4 % (0.0-4.0); HEMATOCRIT 35.6 % (36-48); HEMOGLOBIN 11.8 g/dL (12.0-16.0); LYMPHOCYTES # (AUTO) 0.3 K/uL (1.0-5.5); LYMPHOCYTES % (AUTO) 4.3 % (20.5-51.5); MEAN CORPUSCULAR HEMOGLOBIN 26 pg (27-31); MEAN CORPUSCULAR HGB CONC 33 % (32-36); MEAN CORPUSCULAR VOLUME 79 fL (79.0-98.0); MONOCYTES # (AUTO) 0.2 K/uL (0.0-1.0); MONOCYTES % (AUTO) 2.6 % (1.7-9.3); NEUTROPHILS # (AUTO) 6.8 K/uL (1.8-7.7); NEUTROPHILS % (AUTO) 92.5 % (40.0-70.0); PLATELET COUNT (AUTO) 147 K/uL (130-430); RED CELL DISTRIBUTION WIDTH 14.5 % (9.0-15.0); WHITE BLOOD COUNT (AUTO) 7.4 K/uL (4.8-10.8)
[2021-07-31 07:31] LABS: ALANINE AMINOTRANSFERASE 36 U/L (12-78); ALBUMIN 2.8 g/dL (3.4-4.8); ANION GAP 6 (5-15); ASPARTATE AMINOTRANSFERASE 47 U/L (10-37); CALCIUM 7.3 mg/dL (8.4-11.0); CHLORIDE 102 mmol/L (98-107); CREATININE 0.66 mg/dL (0.55-1.30); GLUCOSE 141 mg/dL (70-99); POTASSIUM 3.4 mmol/L (3.5-5.1); SODIUM SERUM 140 mmol/L (136-145); TOTAL BILIRUBIN 0.3 mg/dL (0.0-1.0); UREA NITROGEN, BLOOD 16 mg/dL (8-21)
[2021-07-31] MEDS: ASCORBIC ACID 500 MG TABLET PO SCH ×2 (08:05→21:09)
[2021-07-31] MEDS: BUDESONIDE 0.5 MG/2 ML AMPUL.NEB INH SCH ×2 (08:05→20:57)
[2021-07-31] MEDS: CHOLECALCIFEROL (VITAMIN D3) 2,000 UNIT TABLET PO SCH (08:06)
[2021-07-31 08:07] LABS: GFR AFRICAN AMERICAN 115 mL/min (>90)
[2021-07-31] MEDS: GABAPENTIN 300 MG CAPSULE PO SCH ×2 (08:07→21:10)
[2021-07-31] MEDS: METHYLPREDNISOLONE SOD SUCC 40 MG/ML VIAL IVP SCH ×2 (08:07→21:09)
[2021-07-31] MEDS: TOPIRAMATE 25 MG TABLET(TOPAMAX) PO SCH (08:08)
[2021-07-31] MEDS: lisinopriL 20 MG TABLET PO SCH (08:08)
[2021-07-31] MEDS: DULoxetine HCL 30 MG CAPSULE.DR (CYMBALTA) PO SCH (08:09)
[2021-07-31] MEDS: FUROSEMIDE 40 MG TABLET PO SCH (08:09)
[2021-07-31] MEDS: CYCLOBENZAPRINE HCL 10 MG TABLET (FLEXERIL) PO SCH ×3 (08:09→21:10)
[2021-07-31] MEDS: CYPROHEPTADINE 4 MG TAB PO SCH ×3 (08:11→21:17)
[2021-07-31] MEDS: IVERMECTIN 3 MG TABLET PO SCH (08:11)
[2021-07-31 08:38] LABS: ERYTHROCYTE SEDIMENTATION RATE 3 MM/HR (0-20)
[2021-07-31 08:58] LABS: C-REACTIVE PROTEIN QUANT < 0.2 mg/dL (0-0.5)
[2021-07-31] MEDS ORDERED: POTASSIUM CHLORIDE 20 MEQ TAB.PRT.SR PO ONE (10:00)
[2021-07-31] MEDS: BARICITINIB -Non-Formulary 2 MG TABLET PO SCH (10:19)
[2021-07-31] MEDS: FAMOTIDINE 20 MG TABLET PO SCH ×2 (10:19→21:09)
[2021-07-31] MEDS ORDERED: POTASSIUM CHLORIDE 20 MEQ TAB.PRT.SR ONE (10:31)
[2021-07-31] MEDS: MELATONIN 3 MG TABLET PO SCH (21:10)
[2021-07-31] MEDS: ATORVASTATIN 20 MG TABLET PO SCH (21:10)
[2021-07-31] MEDS: FLUVOXAMINE MALEATE 50 MG PO SCH (21:17)
[2021-07-31] MEDS: ARIPiprazole 5 MG TAB PO SCH (21:17)
[2021-08-01] VITALS (24 sets, daily range): BP systolic 88–162
[2021-08-01] MEDS: NACL 0.9% 1,000 ML IV SCH ×3 (03:00→20:33)
[2021-08-01] MEDS: ALBUTEROL MDI INHALATION 8 GM INH INH SCH ×5 (03:19→23:47)
[2021-08-01] MEDS: PIPERACILLIN/TAZO 4.5GM/DEX-IS 100 ML IV SCH ×3 (05:55→21:06)
[2021-08-01] MEDS: HEPARIN SODIUM,PORCINE 5,000 UNITS/ML VIAL SUBCUT SCH ×3 (05:58→21:07)
[2021-08-01 06:06] LABS: BASOPHILS % (AUTO) 0.1 % (0.0-2.0); EOSINOPHILS % (AUTO) 0.4 % (0.0-4.0); HEMATOCRIT 34.1 % (36-48); HEMOGLOBIN 11.5 g/dL (12.0-16.0); LYMPHOCYTES # (AUTO) 0.2 K/uL (1.0-5.5); LYMPHOCYTES % (AUTO) 3.3 % (20.5-51.5); MEAN CORPUSCULAR HEMOGLOBIN 27 pg (27-31); MEAN CORPUSCULAR HGB CONC 34 % (32-36); MEAN CORPUSCULAR VOLUME 79 fL (79.0-98.0); MONOCYTES # (AUTO) 0.2 K/uL (0.0-1.0); MONOCYTES % (AUTO) 2.7 % (1.7-9.3); NEUTROPHILS # (AUTO) 6.7 K/uL (1.8-7.7); NEUTROPHILS % (AUTO) 93.5 % (40.0-70.0); PLATELET COUNT (AUTO) 138 K/uL (130-430); RED BLOOD CELL COUNT(AUTO) 4.31 MIL/uL (4.2-6.2); RED CELL DISTRIBUTION WIDTH 14.3 % (9.0-15.0); WHITE BLOOD COUNT (AUTO) 7.2 K/uL (4.8-10.8)
[2021-08-01 06:34] LABS: ANION GAP 6 (5-15); CALCIUM 7.1 mg/dL (8.4-11.0); CHLORIDE 103 mmol/L (98-107); CREATININE 0.61 mg/dL (0.55-1.30); GLUCOSE 142 mg/dL (70-99); POTASSIUM 3.4 mmol/L (3.5-5.1); SODIUM SERUM 139 mmol/L (136-145); UREA NITROGEN, BLOOD 15 mg/dL (8-21)
[2021-08-01 08:10] LABS: GFR AFRICAN AMERICAN 126 mL/min (>90)
[2021-08-01] MEDS: IVERMECTIN 3 MG TABLET PO SCH (08:24)
[2021-08-01] MEDS: FUROSEMIDE 40 MG TABLET PO SCH (08:25)
[2021-08-01] MEDS: TOPIRAMATE 25 MG TABLET(TOPAMAX) PO SCH (08:25)
[2021-08-01] MEDS: CYPROHEPTADINE 4 MG TAB PO SCH ×3 (08:25→20:13)
[2021-08-01] MEDS: METHYLPREDNISOLONE SOD SUCC 40 MG/ML VIAL IVP SCH ×2 (08:26→20:11)
[2021-08-01] MEDS: FAMOTIDINE 20 MG TABLET PO SCH ×2 (08:26→20:13)
[2021-08-01] MEDS: lisinopriL 20 MG TABLET PO SCH (08:27)
[2021-08-01] MEDS: CHOLECALCIFEROL (VITAMIN D3) 2,000 UNIT TABLET PO SCH (08:27)
[2021-08-01] MEDS: GABAPENTIN 300 MG CAPSULE PO SCH ×2 (08:27→20:13)
[2021-08-01] MEDS: DULoxetine HCL 30 MG CAPSULE.DR (CYMBALTA) PO SCH (08:28)
[2021-08-01] MEDS: ASCORBIC ACID 500 MG TABLET PO SCH ×2 (08:28→20:13)
[2021-08-01] MEDS: BARICITINIB -Non-Formulary 2 MG TABLET PO SCH (08:28)
[2021-08-01 08:42] LABS: C-REACTIVE PROTEIN QUANT < 0.2 mg/dL (0-0.5)
[2021-08-01] MEDS ORDERED: ACETAMINOPHEN 325 MG TABLET PO PRN (09:00)
[2021-08-01] MEDS: CYCLOBENZAPRINE HCL 10 MG TABLET (FLEXERIL) PO SCH ×3 (09:00→20:12)
[2021-08-01] MEDS: BUDESONIDE 0.5 MG/2 ML AMPUL.NEB INH SCH ×2 (10:50→20:44)
[2021-08-01] MEDS: LORazepam 2 MG/ML VIAL IVP PRN (11:46)
[2021-08-01 12:28] LABS: ERYTHROCYTE SEDIMENTATION RATE 2 MM/HR (0-20)
[2021-08-01 13:51] LABS: INR 1.3 (0.8-1.2); PROTHROMBIN TIME 13.1 SECS (9.5-12.5)
[2021-08-01] MEDS: OXYCODONE/ACETAMINOPHEN *10*mg/325 mg TABLET PO PRN ×2 (17:00→21:32)
[2021-08-01] MEDS: ARIPiprazole 5 MG TAB PO SCH (20:12)
[2021-08-01] MEDS: FLUVOXAMINE MALEATE 50 MG PO SCH (20:12)
[2021-08-01] MEDS: ATORVASTATIN 20 MG TABLET PO SCH (20:12)
[2021-08-01] MEDS: MELATONIN 3 MG TABLET PO SCH (20:13)
[2021-08-02] VITALS (18 sets, daily range): BP systolic 102–170
[2021-08-02] MEDS: ALBUTEROL MDI INHALATION 8 GM INH INH SCH ×4 (03:42→15:57)
[2021-08-02] MEDS: PIPERACILLIN/TAZO 4.5GM/DEX-IS 100 ML IV SCH ×2 (05:46→14:25)
[2021-08-02] MEDS: HEPARIN SODIUM,PORCINE 5,000 UNITS/ML VIAL SUBCUT SCH ×2 (05:47→14:29)
[2021-08-02] MEDS: LORazepam 2 MG/ML VIAL IVP PRN (06:25)
[2021-08-02 06:40] LABS: BASOPHILS % (AUTO) 0.1 % (0.0-2.0); EOSINOPHILS % (AUTO) 0.2 % (0.0-4.0); HEMATOCRIT 34.3 % (36-48); HEMOGLOBIN 11.3 g/dL (12.0-16.0); LYMPHOCYTES # (AUTO) 0.3 K/uL (1.0-5.5); LYMPHOCYTES % (AUTO) 4.1 % (20.5-51.5); MEAN CORPUSCULAR HEMOGLOBIN 27 pg (27-31); MEAN CORPUSCULAR HGB CONC 33 % (32-36); MEAN CORPUSCULAR VOLUME 80 fL (79.0-98.0); MONOCYTES # (AUTO) 0.2 K/uL (0.0-1.0); MONOCYTES % (AUTO) 3.4 % (1.7-9.3); NEUTROPHILS # (AUTO) 6.7 K/uL (1.8-7.7); NEUTROPHILS % (AUTO) 92.2 % (40.0-70.0); PLATELET COUNT (AUTO) 130 K/uL (130-430); RED BLOOD CELL COUNT(AUTO) 4.28 MIL/uL (4.2-6.2); RED CELL DISTRIBUTION WIDTH 14.5 % (9.0-15.0); WHITE BLOOD COUNT (AUTO) 7.3 K/uL (4.8-10.8)
[2021-08-02 06:50] LABS: ALANINE AMINOTRANSFERASE 77 U/L (12-78); ALBUMIN 2.8 g/dL (3.4-4.8); ANION GAP 5 (5-15); ASPARTATE AMINOTRANSFERASE 67 U/L (10-37); CALCIUM 7.3 mg/dL (8.4-11.0); CHLORIDE 102 mmol/L (98-107); CREATININE 0.71 mg/dL (0.55-1.30); GLUCOSE 129 mg/dL (70-99); POTASSIUM 3.8 mmol/L (3.5-5.1); SODIUM SERUM 139 mmol/L (136-145); TOTAL BILIRUBIN 0.4 mg/dL (0.0-1.0); UREA NITROGEN, BLOOD 15 mg/dL (8-21)
[2021-08-02 06:53] LABS: GFR AFRICAN AMERICAN 106 mL/min (>90)
[2021-08-02 07:48] LABS: C-REACTIVE PROTEIN QUANT < 0.2 mg/dL (0-0.5)
[2021-08-02] MEDS: lisinopriL 20 MG TABLET PO SCH (08:13)
[2021-08-02] MEDS: ASCORBIC ACID 500 MG TABLET PO SCH (08:14)
[2021-08-02] MEDS: CYCLOBENZAPRINE HCL 10 MG TABLET (FLEXERIL) PO SCH ×2 (08:14→15:24)
[2021-08-02] MEDS: FAMOTIDINE 20 MG TABLET PO SCH (08:15)
[2021-08-02] MEDS: CHOLECALCIFEROL (VITAMIN D3) 2,000 UNIT TABLET PO SCH (08:15)
[2021-08-02] MEDS: TOPIRAMATE 25 MG TABLET(TOPAMAX) PO SCH (08:16)
[2021-08-02] MEDS: FUROSEMIDE 40 MG TABLET PO SCH (08:16)
[2021-08-02] MEDS: GABAPENTIN 300 MG CAPSULE PO SCH (08:16)
[2021-08-02] MEDS: DULoxetine HCL 30 MG CAPSULE.DR (CYMBALTA) PO SCH (08:16)
[2021-08-02] MEDS: METHYLPREDNISOLONE SOD SUCC 40 MG/ML VIAL IVP SCH (08:17)
[2021-08-02] MEDS: CYPROHEPTADINE 4 MG TAB PO SCH ×2 (08:26→15:24)
[2021-08-02] MEDS: IVERMECTIN 3 MG TABLET PO SCH (08:27)
[2021-08-02] MEDS: BARICITINIB -Non-Formulary 2 MG TABLET PO SCH (08:27)
[2021-08-02] MEDS: NACL 0.9% 1,000 ML IV SCH (09:05)
[2021-08-02] MEDS: OXYCODONE/ACETAMINOPHEN *10*mg/325 mg TABLET PO PRN ×2 (09:09→16:07)
[2021-08-02] MEDS: BUDESONIDE 0.5 MG/2 ML AMPUL.NEB INH SCH (09:59)
[2021-08-02 13:44] LABS: ERYTHROCYTE SEDIMENTATION RATE 2 MM/HR (0-20)
[2021-08-02] MEDS ORDERED: SODIUM BICARBONATE 8.4% JECT 50 MEQ/50 ML SYRINGE IVP ONE (17:13)
[2021-08-02] MEDS ORDERED: NS 1000 ML IV.SOLN IV ONE (17:13)
[2021-08-02] MEDS ORDERED: EPINEPHrine JECT 0.1 MG/ML SYR IVP ONE (17:13)
[2021-08-02] MEDS ORDERED: ATROPINE SULFATE 1 MG/10 ML SYRINGE IVP ONE (17:13)
== END 2021-08-02 16:59 | DRG 720 ==
LOC: SED 04:18 → SIC 10:46
PROVIDERS: ADMIT Preventive Medicine Preventive Medicine/Occupational Environmental Medicine; ATTEND Preventive Medicine Preventive Medicine/Occupational Environmental Medicine
PROC: 02HV33Z Insertion of Infusion Device into Superior Vena Cava, Percutaneous Approach (ICD-10-PCS; 2021-07-21)
PROC: XW033E5 Introduction of Remdesivir Anti-infective into Peripheral Vein, Percutaneous Approach, New Technology Group 5 (ICD-10-PCS; 2021-07-21)
PROC: 5A0935A Assistance with Respiratory Ventilation, Less than 24 Consecutive Hours, High Flow/Velocity Cannula (ICD-10-PCS; 2021-07-22)
PROC: 5A0935A Assistance with Respiratory Ventilation, Less than 24 Consecutive Hours, High Flow/Velocity Cannula (ICD-10-PCS; 2021-07-23)
PROC: 5A0935A Assistance with Respiratory Ventilation, Less than 24 Consecutive Hours, High Flow/Velocity Cannula (ICD-10-PCS; 2021-07-24)
PROC: 5A0935A Assistance with Respiratory Ventilation, Less than 24 Consecutive Hours, High Flow/Velocity Cannula (ICD-10-PCS; 2021-07-25)
PROC: 5A09457 Assistance with Respiratory Ventilation, 24-96 Consecutive Hours, Continuous Positive Airway Pressure (ICD-10-PCS; 2021-07-26)
PROC: XW033H5 Introduction of Tocilizumab into Peripheral Vein, Percutaneous Approach, New Technology Group 5 (ICD-10-PCS; 2021-07-26)
PROC: 5A0935A Assistance with Respiratory Ventilation, Less than 24 Consecutive Hours, High Flow/Velocity Cannula (ICD-10-PCS; 2021-07-27)
PROC: 5A09357 Assistance with Respiratory Ventilation, Less than 24 Consecutive Hours, Continuous Positive Airway Pressure (ICD-10-PCS; 2021-07-27)
PROC: 5A0935A Assistance with Respiratory Ventilation, Less than 24 Consecutive Hours, High Flow/Velocity Cannula (ICD-10-PCS; 2021-07-28)
PROC: 5A09357 Assistance with Respiratory Ventilation, Less than 24 Consecutive Hours, Continuous Positive Airway Pressure (ICD-10-PCS; 2021-07-28)
PROC: 5A0935A Assistance with Respiratory Ventilation, Less than 24 Consecutive Hours, High Flow/Velocity Cannula (ICD-10-PCS; 2021-07-29)
PROC: 5A09357 Assistance with Respiratory Ventilation, Less than 24 Consecutive Hours, Continuous Positive Airway Pressure (ICD-10-PCS; 2021-07-29)
PROC: 5A0935A Assistance with Respiratory Ventilation, Less than 24 Consecutive Hours, High Flow/Velocity Cannula (ICD-10-PCS; 2021-07-30)
PROC: 5A09357 Assistance with Respiratory Ventilation, Less than 24 Consecutive Hours, Continuous Positive Airway Pressure (ICD-10-PCS; 2021-07-30)
PROC: 5A0935A Assistance with Respiratory Ventilation, Less than 24 Consecutive Hours, High Flow/Velocity Cannula (ICD-10-PCS; 2021-07-31)
PROC: 5A09357 Assistance with Respiratory Ventilation, Less than 24 Consecutive Hours, Continuous Positive Airway Pressure (ICD-10-PCS; 2021-07-31)
PROC: 5A09357 Assistance with Respiratory Ventilation, Less than 24 Consecutive Hours, Continuous Positive Airway Pressure (ICD-10-PCS; 2021-08-01)
PROC: 05HY33Z Insertion of Infusion Device into Upper Vein, Percutaneous Approach (ICD-10-PCS; 2021-08-01)
PROC: 0BH17EZ Insertion of Endotracheal Airway into Trachea, Via Natural or Artificial Opening (ICD-10-PCS; principal; 2021-08-02)
PROC: 5A12012 Performance of Cardiac Output, Single, Manual (ICD-10-PCS; 2021-08-02)
PROC: 5A0935A Assistance with Respiratory Ventilation, Less than 24 Consecutive Hours, High Flow/Velocity Cannula (ICD-10-PCS; 2021-08-02)
PROC: 5A09357 Assistance with Respiratory Ventilation, Less than 24 Consecutive Hours, Continuous Positive Airway Pressure (ICD-10-PCS; 2021-08-02)
DX: A41.9 Sepsis, unspecified organism (principal); J96.01 Acute respiratory failure with hypoxia; J12.82 Pneumonia due to coronavirus disease 2019; J10.08 Influenza due to other identified influenza virus with other specified pneumonia; U07.1 COVID-19; E44.0 Moderate protein-calorie malnutrition; D69.6 Thrombocytopenia, unspecified; K74.60 Unspecified cirrhosis of liver; D72.819 Decreased white blood cell count, unspecified; E66.01 Morbid (severe) obesity due to excess calories; E83.51 Hypocalcemia; D64.9 Anemia, unspecified; E83.39 Other disorders of phosphorus metabolism; R74.01 Elevation of levels of liver transaminase levels; E87.1 Hypo-osmolality and hyponatremia; R73.9 Hyperglycemia, unspecified; E87.5 Hyperkalemia; E87.6 Hypokalemia; F32.A Depression, unspecified; I82.C11 Acute embolism and thrombosis of right internal jugular vein; I82.B11 Acute embolism and thrombosis of right subclavian vein; I82.A11 Acute embolism and thrombosis of right axillary vein; M81.0 Age-related osteoporosis without current pathological fracture; F41.9 Anxiety disorder, unspecified; M79.7 Fibromyalgia; I10 Essential (primary) hypertension; T83.83XA Hemorrhage due to genitourinary prosthetic devices, implants and grafts, initial encounter; Y84.6 Urinary catheterization as the cause of abnormal reaction of the patient, or of later complication, without mention of misadventure at the time of the procedure; Y92.238 Other place in hospital as the place of occurrence of the external cause; Z68.41 Body mass index [BMI] 40.0-44.9, adult; Z79.899 Other long term (current) drug therapy
CPT/HCPCS: 36415; 36600; 71045; 76770; 80048; 80053; 81003; 82550; 82728; 82803-TC; 82962; 83605; 83615; 83735; 83880; 84100; 84484; 85025; 85379; 85384; 85610-TC; 85651-TC; 85730-TC; 86140; 87040; 87086; 92950; 93005; 93971; 94640; 94660; 96361; 96365; 96375; 96376; 97163-GP; 99291; G9035; J0171; J0456; J0461; J0696; J1030; J1100; J1644; J1650; J1885; J2060; J2405; J2543; J3262; J3411; J3480; J3490; J7030; J7050; J7060; J7626